=== PATIENT | male | born 1945 | race Caucasian/White ===

== ENCOUNTER 2017-03-12 05:59 | Inpatient (IN) | payer MEDICARE ==
[~2017-03-12 05:59] MED LIST: Lidocaine 1%/Sod Bicarbonate in NS 8.4% 1 ML Syringe PRN; Sodium Chloride 0.9% 10 ML Syringe FLUSH PRN
--- NOTE | 2017-03-12 06:03 | PCM.PREANE ---
Preanesthetic Assessment - Anesthesia/Transfusion/Family Hx Anesthesia History: Prior Anesthesia Without Reaction Family History of Anesthesia Reaction: No Transfusion History: No Prior Transfusion(s) Intubation History: Unknown - Review of Systems General: No Symptoms Pulmonary: No Symptoms (quit smoking 1999) Cardiovascular: No Symptoms (HTN), Lightheadedness (postural changes) Gastrointestinal: No Symptoms Neurological: No Symptoms (Back surgeries times 5./neurogenic bladder with self cathing noted. Back pain currently rated at 3/10), Tingling (bilateral pareshtesia's on feet.) Other: Reports: None (Mood disorder noted) - Physical Assessment NPO Status Date: 03/11/17 NPO Status Time: 20:15 Pulse: 67 O2 Sat by Pulse Oximetry: 95 Respiratory Rate: 18 Blood Pressure: 131/94 Temperature: 36.3 C Height: 1.78 m Weight: 100.698 kg ASA Class: 2 Mental Status: Alert & Oriented x3 Airway Class: Mallampati = 3 Dentition: Reports: Normal Dentition, Bridge (left/right top permanent.), Caries Thyro-Mental Finger Breadths: 3 Mouth Opening Finger Breadths: 3 ROM/Head Extension: Full Lungs: Clear to Auscultation, Normal Respiratory Effort Cardiovascular: Regular Rate, Regular Rhythm - Lab Values: Lab values reviewed and noted and within acceptable ranges to proceed with scheduled procedure. Noted: elevated BUN at 28 Platelets+ 386,000 MRSA screen negative - Imaging/EKG Impressions: EKG: sinus bradycardia with left axis deviation rate= 59 CXR: unremarkable - Allergies Allergies/Adverse Reactions: Allergies Allergy/AdvReac Type Severity Reaction Status Date / Time morphine Allergy Agitation Verified 03/09/17 12:41 - Anesthesia Plan Pre-Op Medication Ordered: None - Acknowledgements Anesthesia Type Planned: General Anesthesia Pt an Appropriate Candidate for the Planned Anesthesia: Yes Alternatives and Risks of Anesthesia Discussed w Pt/Guardian: Yes Pt/Guardian Understands and Agrees with Anesthesia Plan: Yes PreAnesthesia Questionnaire HEENT History: Reports: Impaired Vision Other HEENT History: wears glasses, has hearing aid Cardiovascular History: Reports: High Cholesterol, Hypertension Respiratory History: Reports: SOB Gastrointestinal History: Reports: Chronic Constipation Genitourinary History: Reports: Other (See Below) Other Genitourinary History: neurogenic bladder with self cathing [employer] History: Reports: None Musculoskeletal History: Reports: Back Pain, Chronic, Gout, Osteoarthritis Psychiatric History: Reports: Other (See Below) Other Psychiatric History: mood disorder, insomnia Endocrine/Metabolic History: Reports: None Hematologic History: Reports: None Immunologic History: Reports: None Oncologic (Cancer) History: Reports: None Dermatologic History: Reports: Other (See Below) - Past Surgical History Head Surgeries/Procedures: Reports: None Cardiovascular Surgical History: Reports: None Respiratory Surgical History: Reports: None GI Surgical History: Reports: Appendectomy, Colonoscopy Female Surgical History: Male Surgical History: Endocrine Surgical History: Neurological Surgical History: Reports: Other (See Below) Other Neurological Surgeries/Procedures: back surgery x 5 Musculoskeletal Surgical History: Reports: Carpal Tunnel Oncologic Surgical History: Reports: None - SUBSTANCE USE Smoking Status *Q: Former Smoker Second Hand Smoke Exposure: No Recreational Drug Use History: No - HOME MEDS Home Medications: Home Meds Aspirin 81 mg PO DAILY 03/09/17 [History] Cholecalciferol (Vitamin D3) [Vitamin D3] 5,000 unit PO DAILY 03/09/17 [History] DULoxetine [Cymbalta] 30 mg PO DAILY 03/09/17 [History] HYDROmorphone [Dilaudid] 4 mg PO Q4H PRN 03/09/17 [History] Lisinopril 20 mg PO DAILY 03/09/17 [History] Polyethylene Glycol 3350 [MiraLAX] 1 dose PO BEDTIME 03/09/17 [History] Pregabalin [Lyrica] 150 mg PO TID 03/09/17 [History] Zolpidem [Ambien] 10 mg PO BEDTIME 03/09/17 [History] atorvaSTATin [Lipitor] 20 mg PO DAILY 03/09/17 [History] fentaNYL [Fentanyl] 50 mcg TOP Q48H 03/09/17 [History] - CURRENT (IN HOUSE) MEDS Current Meds: Current Medications Lactated Ringer's (Ringers, Lactated) 1,000 mls @ 125 mls/hr IV ASDIRECTED ELIZABETH Lidocaine/Sodium Bicarbonate (Buffered Lidocaine 1% In Ns 8.4%) 0.25 ml IV ONETIME PRN PRN Reason: Prior to IV Start Sodium Chloride (Saline Flush) 10 ml FLUSH ASDIRECTED PRN PRN Reason: Keep Vein Open
[2017-03-12] MEDS ORDERED: Docusate Sodium 100 MG Cap PO PRN (06:30)
[2017-03-12] MEDS ORDERED: Sennosides 8.6 MG Tab PO PRN (06:30)
[2017-03-12] MEDS ORDERED: Naloxone 0.4 MG/ML SDV IVPUSH PRN (06:30)
[2017-03-12] MEDS: Lactated Ringers 1,000 ML IV SCH ×2 (06:30→11:32)
[2017-03-12] MEDS ORDERED: ceFAZolin 2 GM in Premix Bag 1 BAG IV SCH (06:30)
[2017-03-12] MEDS ORDERED: Magnesium Hydroxide 400 MG/5 ML Susp 30 ML Cup PO PRN (06:30)
[2017-03-12] MEDS ORDERED: Ondansetron 4 MG/2 ML SDV IVPUSH PRN ×2 (06:30→07:31)
[2017-03-12] MEDS ORDERED: HYDROmorphone 1 MG/ML Syringe IVPUSH PRN (06:30)
[2017-03-12] MEDS ORDERED: Bisacodyl 5 MG Tab PO PRN (06:30)
[2017-03-12] MEDS ORDERED: Rocuronium 50 MG/5 ML Vial ONE (06:44)
[2017-03-12] MEDS ORDERED: ceFAZolin 1 GM Vial ONE (06:44)
[2017-03-12] MEDS ORDERED: Lidocaine 1% 4 ML ONE (06:44)
[2017-03-12] MEDS ORDERED: Lactated Ringers 1,000 ML ONE (06:44)
[2017-03-12] MEDS ORDERED: Ondansetron 4 MG/2 ML SDV ONE (06:44)
[2017-03-12] MEDS ORDERED: HYDROmorphone 1 MG/ML Syringe ONE (06:44)
[2017-03-12] MEDS ORDERED: Propofol 200 MG/20 ML SDV ONE (06:45)
[2017-03-12] MEDS ORDERED: fentaNYL 250 MCG/5 ML SDV ONE ×2 (06:45→08:12)
[2017-03-12] MEDS ORDERED: HYDROmorphone 0.5 MG/0.5 ML Syringe IVPUSH PRN (07:07)
[2017-03-12] MEDS ORDERED: ePHEDrine 50 MG/ML SDV IVPUSH PRN (07:31)
[2017-03-12] MEDS ORDERED: Phenylephrine 1 MG in Sodium Chloride 0.9% 10 ML IV SCH (07:45)
[2017-03-12] MEDS: Iodine/Sodium Iodide 2% Tincture 30 ML Bottle ONE ×2 (07:58→08:40)
[2017-03-12] MEDS: ceFAZolin 1 GM Vial ONE ×2 (07:58→08:44)
[2017-03-12] MEDS: Morphine 8 MG, EPINEPHrine 0.3 MG, Cefuroxime 750 MG, Ketorolac 30 MG, Sodium Chloride ... ONE ×10 (07:59→08:51)
[2017-03-12] MEDS: Bupivacaine 0.25% 30 ML SDV ONE ×2 (08:00→08:52)
[2017-03-12] MEDS: Vancomycin 1 GM SDV ONE ×2 (08:01→08:51)
[2017-03-12] MEDS ORDERED: Labetalol 100 MG/20 ML MDV ONE (08:23)
[2017-03-12] MEDS: fentaNYL 100 MCG/2 ML SDV IVPUSH PRN ×4 (09:40→10:47)
--- NOTE | 2017-03-12 09:40 | PCM.POSTAN ---
POST ANESTHESIA ASSESSMENT - MENTAL STATUS Mental Status: Alert - VITAL SIGNS Pulse Rate: 72 SaO2: 92 Resp Rate: 13 Blood Pressure: 138/89 Temperature: 36.5 C - RESPIRATORY Respiratory Status: Respiratory Rate WNL, Airway Patent, O2 Saturation Stable, Supplemental Oxygen - CARDIOVASCULAR CV Status: Pulse Rate WNL, Blood Pressure Stable - GASTROINTESTINAL GI Status: No Symptoms - POST OP HYDRATION Hydration Status: Adequate & Stable
[2017-03-12] MEDS: HYDROmorphone 0.5 MG/0.5 ML Syringe IVPUSH PRN ×2 (09:43→10:08)
[2017-03-12] MEDS ORDERED: fentaNYL 100 MCG/2 ML SDV ONE ×4 (09:47→11:32)
[2017-03-12] MEDS ORDERED: HYDROmorphone 0.5 MG/0.5 ML Syringe ONE (09:48)
--- NOTE | 2017-03-12 11:10 | CR ---
Left knee: AP and lateral views of the left knee were obtained. Comparison: No previous left knee. Left knee prosthesis is noted. Components are aligned. Soft tissue air is identified. No acute fracture or other abnormality is seen. Impression: 1. Satisfactory appearance of recently placed left knee prosthesis. Diagnostic code #2
[2017-03-12] MEDS ORDERED: Ropivacaine 0.5% 5 MG/ML 30 ML SDV ONE (11:20)
[2017-03-12] MEDS ORDERED: EPINEPHrine 1 MG/ML SDV ONE (11:20)
[2017-03-12] MEDS ORDERED: Midazolam 1 MG/ML 2 ML SDV ONE (11:32)
--- NOTE | 2017-03-12 12:33 | PCM.SN ---
- Free Text/Narrative Note: Anesthesia Note: Date: 03/12/2017 Time Out: 1132 Start: 1132 Stop: 1155 Procedure: Left Femoral Nerve Block Under US Guidance for post operative pain control requested by Dr. De Anda. Patient chart reviewed, allergies noted, and risk/benefits discussed with consent obtained. Patient placed in supine position, monitors/alarms on, O2 placed via nasal cannula at 2LPM. IV sedation titrated to effect. 1135 HR: 72 RR: 13 BP: 117/71 SPo2: 94% on 2L/NC 1145 HR:76 RR:10 BP:106/74 SPo2: 92% on 3L/NC Sterile technique noted with sterile gloves, cap, mask, and sterile drapes. Right groin area prepped with chloroprep times two. Femoral artery, Femoral vein, and Femoral nerve branch visualized under US guidance (sterile sleeve) noted. Area localized with 1% lidocaine. Stimiplex 21 gauge 4 inch needle advanced under US guidance with a positive quadricep and knee stimulated at 0.8mV. Stimulation still noted with voltage decreased to 0.2mV. Stimulation ceased with 1ml of normal saline injected. Ropivacaine 0.5% with 1:200,000 epinephrine injected incrementally with negative aspirations for a total volume of 30ml's.
[2017-03-12] MEDS ORDERED: FLU Vacc TS 2017-18 (65yr UP)/PF 180 MCG/0.5 ML Syringe IM ONE (14:45)
[2017-03-12] MEDS: ceFAZolin 2 GM in Premix Bag 1 BAG IV SCH ×2 (15:02→22:53)
[2017-03-12] MEDS: Famotidine 20 MG Tab PO SCH ×2 (15:48→20:36)
[2017-03-12] MEDS ORDERED: fentaNYL 50 MCG/HR Transdermal Patch TOP SCH (17:30)
--- NOTE | 2017-03-12 18:34 | PCM.CONS ---
H&P History of Present Illness - General Date of Service: 03/12/17 Admit Problem/Dx: Admission Diagnosis/Problem Admission Diagnosis/Problem Osteoarthritis of knee Source of Information: Patient, Old Records, Provider, RN, RN Notes Reviewed, Other (surgical notes) History Limitations: Reports: No Limitations - History of Present Illness Initial Comments - Free Text/Narative: Arsalan Mckenzie is a 71 yo male patient of Dr. De Anda who is post-op day 0 of left total knee arthroplasty. Hospital medicine was consulted for post- operative medical care. At this time he is resting comfortably. Pain is controlled. He denies any chest pain, shortness of breath, palpitatoins, nausea , or vomiting. He carries a history of: HLD, HTN, chronic constipation, neurogenic bladder with self cathetering, chronic back pain, gout, osteoarthritis, mood disorder, and insomnia. He is a former smoker. He is a full code. His primary care provider is Dr. Nixon. Left Knee Pain Score (Numeric/FACES): 5 - Related Data Allergies/Adverse Reactions: Allergies Allergy/AdvReac Type Severity Reaction Status Date / Time morphine AdvReac Agitation Verified 03/12/17 07:29 Home Medications: Home Meds Aspirin 81 mg PO DAILY 03/09/17 [History] Cholecalciferol (Vitamin D3) [Vitamin D3] 5,000 unit PO DAILY 03/09/17 [History] DULoxetine [Cymbalta] 30 mg PO DAILY 03/09/17 [History] HYDROmorphone [Dilaudid] 4 mg PO Q4H PRN 03/09/17 [History] Lisinopril 10 mg PO DAILY 03/09/17 [History] Polyethylene Glycol 3350 [MiraLAX] 1 dose PO BEDTIME 03/09/17 [History] Pregabalin [Lyrica] 150 mg PO TID 03/09/17 [History] Zolpidem [Ambien] 10 mg PO BEDTIME 03/09/17 [History] atorvaSTATin [Lipitor] 20 mg PO DAILY 03/09/17 [History] fentaNYL [Fentanyl] 50 mcg TOP Q48H 03/09/17 [History] Past Medical History HEENT History: Reports: Impaired Vision Other HEENT History: wears glasses, has hearing aid Cardiovascular History: Reports: High Cholesterol, Hypertension Respiratory History: Reports: SOB Gastrointestinal History: Reports: Chronic Constipation Genitourinary History: Reports: Other (See Below) Other Genitourinary History: neurogenic bladder with self cathing [employer] History: Reports: None Musculoskeletal History: Reports: Back Pain, Chronic, Gout, Osteoarthritis Neurological History: Reports: None Psychiatric History: Reports: Other (See Below) Other Psychiatric History: mood disorder, insomnia Endocrine/Metabolic History: Reports: None Hematologic History: Reports: None Immunologic History: Reports: None Oncologic (Cancer) History: Reports: None Dermatologic History: Reports: Other (See Below) - Past Surgical History Head Surgeries/Procedures: Reports: None Cardiovascular Surgical History: Reports: None Respiratory Surgical History: Reports: None GI Surgical History: Reports: Appendectomy, Colonoscopy Endocrine Surgical History: Reports: None Neurological Surgical History: Reports: Other (See Below) Other Neurological Surgeries/Procedures: back surgery x 5 Musculoskeletal Surgical History: Reports: Carpal Tunnel Oncologic Surgical History: Reports: None Social & Family History - Family History Cardiac: Reports: Hypertension Respiratory: Reports: None GI: Reports: None : Reports: None Musculoskeletal: Reports: None Endocrine/Metabolic: Reports: Diabetes, type II Hematologic: Reports: None Oncologic: Reports: Breast - Tobacco Use Smoking Status *Q: Former Smoker Years of Tobacco use: 35 Packs/Tins Daily: 1 Used Tobacco, but Quit: Yes Month Tobacco Last Used: 1999 Second Hand Smoke Exposure: No - Caffeine Use Caffeine Use: Reports: Coffee Caffeine Use Comment: 2 cups of coffee/day - Recreational Drug Use Recreational Drug Use: No H&P Review of Systems - Review of Systems: Review Of Systems: See Below General: Reports: No Symptoms HEENT: Reports: No Symptoms Pulmonary: Reports: No Symptoms Cardiovascular: Reports: No Symptoms Gastrointestinal: Reports: No Symptoms Genitourinary: Reports: No Symptoms Musculoskeletal: Reports: Back Pain (Chronic -06/23), Joint Pain (left knee). Denies: Neck Pain, Shoulder Pain, Arm Pain, Leg Pain, Muscle Pain, Muscle Stiffness Skin: Reports: No Symptoms Psychiatric: Reports: No Symptoms Neurological: Reports: No Symptoms Hematologic/Lymphatic: Reports: No Symptoms Immunologic: Reports: No Symptoms Review of Systems Comment:: patient reports he is doing quite well. he states that he normally has to self catheter but the frequency is variable and does not have to happen always. Exam - Exam Exam: See Below - Vital Signs Vital Signs: Last Vital Signs Temp 209.8 F H 03/12/17 12:09 Pulse 74 03/12/17 14:32 Resp 10 L 03/12/17 12:09 BP 144/83 H 03/12/17 14:32 Pulse Ox 95 03/12/17 14:32 Weight: 222 lb - Exam Quality Assessment: Urinary Catheter, DVT Prophylaxis. No: Supplemental Oxygen General: Alert, Oriented, Cooperative HEENT: Conjunctiva Clear, EACs Clear, EOMI, Hearing Intact, Mucosa Moist & Petal , Nares Patent, Normal Nasal Septum, Posterior Pharynx Clear, Pupils Equal, Pupils Reactive Neck: Supple, Trachea Midline. No: JVD Lungs: Clear to Auscultation, Normal Respiratory Effort Cardiovascular: Regular Rate, Regular Rhythm GI/Abdominal Exam: Normal Bowel Sounds, Soft, Non-Tender, No Organomegaly, No Abnormal Bruit, No Mass, Pelvis Stable, Distended (Male) Exam: Deferred Rectal (Males) Exam: Deferred Back Exam: Normal Inspection, Decreased Range of Motion, Paraspinal Tenderness, Vertebral Tenderness Extremities: No Pedal Edema, Normal Capillary Refill, Other (Toan bandage on left leg. Bandage is dry and intact) Peripheral Pulses: 1+: Posterior Tibial (L), Posterior Tibial (R), Dorsalis Pedis (L), Dorsalis Pedis (R), 2+: Radial (L), Radial (R) Skin: Warm, Dry, Intact Neurological: Cranial Nerves Intact (grossly) Neuro Extensive - Mental Status: Alert, Oriented x3, Normal Mood/Affect, Normal Cognition, Memory Intact Neuro Extensive - Motor, Sensory, Reflexes: CN II-XII Intact (grossly) Psychiatric: Alert, Normal Affect, Normal Mood Physical Exam Comments:: No concerns currently. Consult PN Assessment/Plan POD#: 0 Procedures: Procedures ASSAY OF CREATININE (08/03/16) DXA BONE DENSITY AXIAL (03/06/17) MRI BRAIN STEM W/O & W/DYE (08/03/16) ROUTINE VENIPUNCTURE (08/03/16) (1) S/P total knee arthroplasty SNOMED Code(s): 1235082355023, 6002726244453 Code(s): Z96.659 - PRESENCE OF UNSPECIFIED ARTIFICIAL KNEE JOINT Priority: High Current Visit: Yes Qualifiers: Laterality: left Qualified Code(s): Z96.652 - Presence of left artificial knee joint (2) Osteoarthritis SNOMED Code(s): 414966324 Code(s): M19.90 - UNSPECIFIED OSTEOARTHRITIS, UNSPECIFIED SITE Priority: High Current Visit: Yes Qualifiers: Osteoarthritis location: knee Osteoarthritis type: primary Laterality: left Qualified Code(s): M17.12 - Unilateral primary osteoarthritis, left knee (3) HLD (hyperlipidemia) SNOMED Code(s): 32846045 Code(s): E78.5 - HYPERLIPIDEMIA, UNSPECIFIED Priority: Low Current Visit : No Qualifiers: Hyperlipidemia type: unspecified Qualified Code(s): E78.5 - Hyperlipidemia , unspecified (4) HTN (hypertension) SNOMED Code(s): 73630185 Code(s): I10 - ESSENTIAL (PRIMARY) HYPERTENSION Priority: Low Current Visit: Yes Qualifiers: Hypertension type: unspecified Qualified Code(s): I10 - Essential (primary ) hypertension (5) Chronic constipation SNOMED Code(s): 672142335 Code(s): K59.09 - OTHER CONSTIPATION Priority: Low Current Visit: No (6) Neurogenic bladder SNOMED Code(s): 803179707 Code(s): N31.9 - NEUROMUSCULAR DYSFUNCTION OF BLADDER, UNSPECIFIED Priority : Low Current Visit: No (7) Chronic back pain SNOMED Code(s): 521255012 Code(s): M54.9 - DORSALGIA, UNSPECIFIED; G89.29 - OTHER CHRONIC PAIN Priority: Medium Current Visit: Yes Qualifiers: Back pain location: low back pain Back pain laterality: unspecified Sciatica presence: unspecified whether sciatica present Qualified Code(s): M54.5 - Low back pain; G89.29 - Other chronic pain; G89.29 - Other chronic pain (8) Gout SNOMED Code(s): 80614932 Code(s): M10.9 - GOUT, UNSPECIFIED Priority: Low Current Visit: No Qualifiers: Gout site: unspecified site Gout etiology: unspecified cause Chronicity: unspecified Qualified Code(s): M10.9 - Gout, unspecified (9) Mood disorder Priority: Low Current Visit: No (10) Insomnia SNOMED Code(s): 588202197 Code(s): G47.00 - INSOMNIA, UNSPECIFIED Priority: Low Current Visit: No Qualifiers: Insomnia type: unspecified Qualified Code(s): G47.00 - Insomnia, unspecified Problem List Initiated/Reviewed/Updated: Yes Plan: I/P: Acute: S/P left total knee arthorplasty - postoperative day 0 -DVT prophylaxis and pain management per primary care team -PT/OT -IS/RT -Monitor oxygen saturation -Titrate oxygen as needed -Vital signs stable Osteoarthritis of left knee -Pain management per primary care team Neurogenic bladder with self-catheterization -Desai in place now -Nursing to monitor and catheterize as needed Chronic: HLD HTN Chronic constipation Chronic back pain - pain meds/home medications Gout Mood disorder Insomnia Plan: SW/CM for discharge planning GI prophylaxis Home medications as indicated Other orders as listed above Routine AM labs He is a full code. His PCP is Dr. Nixon Thank you for allowing us to participate in the care of this patient!! Requesting Provider: Dr. De Anda Date Consult Requested: 03/12/17 Reason for Consult: Post-operative medical management Patient History Reviewed: Yes Admission H&P Reviewed: Yes
[2017-03-12] MEDS: Polyethylene Glycol 3350 Powder 17 GM Packet PO SCH (19:59)
[2017-03-12] MEDS: Pregabalin 75 MG Cap PO SCH (20:36)
[2017-03-12] MEDS ORDERED: Polyethylene Glycol 3350 Powder 17 GM Packet PO SCH (21:00)
[2017-03-12] MEDS ORDERED: Zolpidem 10 MG Tab PO SCH (21:00)
[2017-03-12] MEDS: HYDROmorphone 2 MG Tab PO PRN (22:53)
[2017-03-13] MEDS: Famotidine 20 MG Tab PO SCH ×2 (06:29→16:51)
[2017-03-13] MEDS: ceFAZolin 2 GM in Premix Bag 1 BAG IV SCH (06:29)
[2017-03-13] MEDS: HYDROmorphone 2 MG Tab PO PRN ×2 (08:34→12:28)
[2017-03-13] MEDS: Pregabalin 75 MG Cap PO SCH ×2 (08:34→16:52)
[2017-03-13] MEDS: Polyethylene Glycol 3350 Powder 17 GM Packet PO SCH (08:37)
[2017-03-13] MEDS ORDERED: Simvastatin 20 MG Tab PO SCH (09:00)
[2017-03-13] MEDS ORDERED: Aspirin 325 MG Tab.EC PO SCH (09:00)
[2017-03-13] MEDS ORDERED: DULoxetine 30 MG Cap PO SCH (09:00)
[2017-03-13] MEDS ORDERED: Lisinopril 10 MG Tab PO SCH (09:00)
[2017-03-13] MEDS ORDERED: Cholecalciferol (Vitamin D3) 1,000 Unit Tab PO SCH (09:00)
[2017-03-13] MEDS ORDERED: Diphtheria,Pertussis(Acell),Tetanus Vaccine 0.5 ML SDV IM ONE (10:00)
[2017-03-13] MEDS ORDERED: Pneumococcal Polyvalent-23 Vaccine 0.5 ML SDV IM ONE (10:00)
--- NOTE | 2017-03-13 10:32 | PCM48HPAN ---
Post Anesthesia Note - EVALUATION WITHIN 48HRS OF ANESTHETIC Vital Signs in Normal Range: Yes Patient Participated in Evaluation: Yes Respiratory Function Stable: Yes Airway Patent: Yes Cardiovascular Function Stable: Yes Hydration Status Stable: Yes Pain Control Satisfactory: No Nausea and Vomiting Control Satisfactory: Yes Mental Status Recovered: Yes - COMMENTS/OBSERVATIONS Free Text/Narrative:: Patient states pain is bad. Anesthesia reviewed MAR and discussed pain medication with nurse.
[2017-03-13] MEDS ORDERED: Cyclobenzaprine 10 MG Tab PO PRN (11:53)
[2017-03-13] MEDS ORDERED: Ketorolac 15 MG/ML SDV IVPUSH ONE (12:20)
--- NOTE | 2017-03-13 12:20 | PCM.PN ---
- General Info Date of Service: 03/13/17 Admission Dx/Problem (Free Text): Admission Diagnosis/Problem Admission Diagnosis/Problem Osteoarthritis of knee S/P Lt TKA POD #[address] De Anda Pain is uncontrolled this morning to his knee and leg. He has chronic pain by hx. Tolerated breakfast, no nausea. He is self cathing - does this at home by hx due to neurogenic bladder, with good UO. Functional Status: Reports: Tolerating Diet, Ambulating, Urinating (straight cath), Incentive Spirometry. Denies: Pain Controlled - Review of Systems General: Denies: Fever HEENT: Reports: No Symptoms Pulmonary: Reports: No Symptoms. Denies: Shortness of Breath, Cough Cardiovascular: Reports: No Symptoms. Denies: Chest Pain, Palpitations Gastrointestinal: Reports: No Symptoms Genitourinary: Reports: No Symptoms, Other (self cathing) Musculoskeletal: Reports: Back Pain, Leg Pain - Patient Data Vitals - Most Recent: Last Vital Signs Temp 99.3 F 03/13/17 09:06 Pulse 88 03/13/17 10:56 Resp 13 03/13/17 09:06 BP 111/65 03/13/17 10:56 Pulse Ox 89 L 03/13/17 10:56 Weight - Most Recent: 234 lb 1.6 oz I&O - Last 24 Hours: Intake & Output 03/12/17 03/13/17 03/13/17 22:59 06:59 14:59 Intake Total 2019 300 180 Output Total 650 Balance 2020 -350 180 Lab Results Last 24 Hours: Laboratory Results - last 24 hr 03/13/17 03/13/17 Range/Units 05:20 05:20 WBC 12.10 H (4.23-9.07) K/mm3 RBC 3.75 L (4.63-6.08) M/mm3 Hgb 11.9 L (13.7-17.5) gm/L Hct 35.4 L (40.1-51.0) % MCV 94.4 H (79.0-92.2) fl MCH 31.7 (25.7-32.2) pg MCHC 33.6 (32.2-35.5) g/dl RDW Std Deviation 43.8 (35.1-43.9) fL Plt Count 281 (163-337) K/mm3 MPV 10.1 (9.4-12.3) fl Sodium 139 (136-145) mEq/L Potassium 4.4 (3.5-5.1) mEq/L Chloride 103 (98-107) mEq/L Carbon Dioxide 26 (21-32) mEq/L Anion Gap 14.4 (5-15) BUN 19 H (7-18) mg/dL Creatinine 1.3 (0.7-1.3) mg/dL Est Cr Clr Drug Dosing 54.59 mL/min Estimated GFR (MDRD) 55 (>60) mL/min BUN/Creatinine Ratio 14.6 (14-18) Glucose 129 H (80-115) mg/dL Calcium 8.0 L (8.5-10.1) mg/dL Total Bilirubin 0.9 (0.2-1.0) mg/dL AST 33 (15-37) U/L ALT 33 (16-63) U/L Alkaline Phosphatase 69 (46-116) U/L Total Protein 6.0 L (6.4-8.2) g/dl Albumin 2.8 L (3.4-5.0) g/dl Globulin 3.2 gm/dL Albumin/Globulin Ratio 0.9 L (1-2) Med Orders - Current: Current Medications Aspirin (Ecotrin) 325 mg PO BID [facility] Last Admin: 03/13/17 08:33 Dose: 325 mg Bisacodyl (Dulcolax) 5 mg PO DAILY PRN PRN Reason: Constipation Cholecalciferol (Vitamin D3) 5,000 units PO DAILY [facility] Last Admin: 03/13/17 08:33 Dose: 5,000 units Cyclobenzaprine HCl (Flexeril) 10 mg PO TID PRN PRN Reason: muscle spasms Duloxetine HCl (Cymbalta) 30 mg PO DAILY [facility] Last Admin: 03/13/17 08:34 Dose: 30 mg Famotidine (Pepcid) 20 mg PO Q12H [facility] Last Admin: 03/13/17 06:29 Dose: 20 mg Fentanyl (Duragesic) 50 mcg TOP Q48H [facility] Last Admin: 03/12/17 20:36 Dose: 50 mcg Hydromorphone HCl (Dilaudid) 0.2 mg IVPUSH Q2H PRN PRN Reason: Breakthrough Pain Hydromorphone HCl (Dilaudid) 4 mg PO Q4H PRN PRN Reason: Pain Last Admin: 03/13/17 08:34 Dose: 4 mg Ketorolac Tromethamine (Toradol) 15 mg IVPUSH ONETIME ONE Stop: 03/13/17 12:15 Lisinopril (Prinivil) 10 mg PO DAILY [facility] Last Admin: 03/13/17 08:36 Dose: 10 mg Magnesium Hydroxide (Milk Of Magnesia) 30 ml PO BID PRN PRN Reason: Constipation Miscellaneous Information (Remove Patch) 1 ea TRDERM Q48H [facility] Naloxone HCl (Narcan) 0.1 mg IVPUSH Q5M PRN PRN Reason: Oversedation Ondansetron HCl (Zofran) 4 mg IVPUSH Q6H PRN PRN Reason: Nausea/Vomiting Polyethylene Glycol (Miralax) 17 gm PO DAILY [facility] Last Admin: 03/13/17 08:37 Dose: 17 gm Polyethylene Glycol (Miralax) 17 gm PO BEDTIME [facility] Last Admin: 03/12/17 20:37 Dose: 17 gm Pregabalin (Lyrica) 150 mg PO TID [facility] Last Admin: 03/13/17 08:34 Dose: 150 mg Senna/Docusate Sodium (Senna Plus) 2 tab PO BEDTIME [facility] Last Admin: 03/12/17 20:33 Dose: Not Given Simvastatin (Zocor) 20 mg PO DAILY [facility] Sodium Chloride (Saline Flush) 10 ml FLUSH ASDIRECTED PRN PRN Reason: Keep Vein Open Tapentadol (Nucynta) 50 - 100 mg PO Q4H PRN PRN Reason: Pain Last Admin: 03/13/17 10:59 Dose: 50 mg Zolpidem Tartrate (Ambien) 10 mg PO BEDTIME [facility] Last Admin: 03/12/17 20:36 Dose: 10 mg Discontinued Medications Bupivacaine HCl (Marcaine 0.25%) Confirm Administered Dose 30 ml .ROUTE .STK- MED ONE Stop: 03/12/17 06:17 Last Admin: 03/12/17 08:52 Dose: 30 ml Cefazolin Sodium (Ancef) Confirm Administered Dose 2 gm .ROUTE .STK-MED ONE Stop: 03/12/17 06:17 Last Admin: 03/12/17 08:44 Dose: 2 gm Cefazolin Sodium (Ancef) Confirm Administered Dose 2 gm .ROUTE .STK-MED ONE Stop: 03/12/17 06:45 Morphine Sulfate 8 mg/Epinephrine HCl 0.3 mg/Cefuroxime Sodium 750 mg/Ketorolac Tromethamine 30 mg/Sodium Chloride 27.9 ml 0 mg .XX ONETIME ONE Stop: 03/12/17 07:31 Last Admin: 03/12/17 08:51 Dose: 788.3 mg Diphtheria/Tetanus/Acell Pertussis (Adacel) 0.5 ml IM .ONCE ONE Stop: 03/13/17 10:01 Docusate Sodium (Colace) 100 mg PO BID PRN PRN Reason: Constipation Ephedrine Sulfate (Ephedrine Sulfate) 5 mg IVPUSH ASDIRECTED PRN PRN Reason: Hypotension Stop: 03/12/17 10:00 Epinephrine HCl (Adrenalin 1:1000) Confirm Administered Dose 1 mg .ROUTE .STK- MED ONE Stop: 03/12/17 11:21 Fentanyl (Sublimaze) Confirm Administered Dose 250 mcg .ROUTE .STK-MED ONE Stop: 03/12/17 06:46 Fentanyl (Sublimaze) 50 mcg IVPUSH Q5M PRN PRN Reason: Pain Stop: 03/12/17 10:00 Last Admin: 03/12/17 10:47 Dose: 50 mcg Fentanyl (Sublimaze) Confirm Administered Dose 250 mcg .ROUTE .STK-MED ONE Stop: 03/12/17 08:13 Fentanyl (Sublimaze) Confirm Administered Dose 100 mcg .ROUTE .STK-MED ONE Stop: 03/12/17 09:48 Last Admin: 03/12/17 13:25 Dose: Not Given Fentanyl (Sublimaze) Confirm Administered Dose 100 mcg .ROUTE .STK-MED ONE Stop: 03/12/17 10:16 Last Admin: 03/12/17 13:25 Dose: Not Given Fentanyl (Sublimaze) Confirm Administered Dose 100 mcg .ROUTE .STK-MED ONE Stop: 03/12/17 10:40 Last Admin: 03/12/17 13:25 Dose: Not Given Fentanyl (Sublimaze) Confirm Administered Dose 100 mcg .ROUTE .STK-MED ONE Stop: 03/12/17 11:33 Last Admin: 03/12/17 11:41 Dose: 50 mcg Hydromorphone HCl (Dilaudid) Confirm Administered Dose 1 mg .ROUTE .STK-MED ONE Stop: 03/12/17 06:45 Hydromorphone HCl (Dilaudid) 0.2 mg IVPUSH Q2H PRN PRN Reason: Breakthrough Pain Hydromorphone HCl (Dilaudid) 0.5 mg IVPUSH Q15M PRN PRN Reason: severe pain Stop: 03/12/17 10:00 Last Admin: 03/12/17 10:08 Dose: 0.5 mg Hydromorphone HCl (Dilaudid) Confirm Administered Dose 0.5 mg .ROUTE .STK-MED ONE Stop: 03/12/17 09:49 Last Admin: 03/12/17 13:24 Dose: Not Given Lactated Ringer's (Ringers, Lactated) 1,000 mls @ 125 mls/hr IV ASDIRECTED [facility] Stop: 03/12/17 23:00 Last Admin: 03/12/17 11:32 Dose: 125 mls/hr Acetaminophen (Ofirmev) 100 mls @ 400 mls/hr IV NOW ONE Stop: 03/12/17 06:18 Last Admin: 03/12/17 07:01 Dose: 400 mls/hr Lidocaine HCl (Xylocaine-Mpf 1%) Confirm Administered Dose 4 mls @ as directed .ROUTE .STK-MED ONE Stop: 03/12/17 06:45 Lactated Ringer's (Ringers, Lactated) Confirm Administered Dose 1,000 mls @ as directed .ROUTE .STK-MED ONE Stop: 03/12/17 06:45 Phenylephrine HCl 1 mg/ Sodium (Chloride) 10.1 mls @ 1 mls/sec IV TITRATE ELIZABETH PRN Reason: Protocol Stop: 03/12/17 10:00 Cefazolin Sodium/Dextrose 2 gm (/ Premix) 50 mls @ 100 mls/hr IV Q8H [facility] Stop: 03/13/17 07:29 Last Admin: 03/13/17 06:29 Dose: 100 mls/hr Influenza Virus Vaccine (Pharmacy To Dose - Influenza Vaccine) 1 each IM ONETIME ONE Stop: 03/12/17 14:33 Last Admin: 03/12/17 15:47 Dose: Not Given Influenza Virus Vaccine (Fluzone High-Dose ) 180 mcg IM .ONCE ONE Stop: 03/12/17 14:46 Iodine (Iodine 2% Mild Tincture) Confirm Administered Dose 30 ml .ROUTE .STK- MED ONE Stop: 03/12/17 06:17 Last Admin: 03/12/17 08:40 Dose: 18 ml Labetalol HCl (Normodyne) Confirm Administered Dose 100 mg .ROUTE .STK-MED ONE Stop: 03/12/17 08:24 Lidocaine/Sodium Bicarbonate (Buffered Lidocaine 1% In Ns 8.4%) 0.25 ml .XX ONETIME PRN PRN Reason: Prior to IV Start Stop: 03/12/17 18:00 Last Admin: 03/12/17 06:29 Dose: 0.25 ml Midazolam HCl (Versed 1 Mg/Ml) Confirm Administered Dose 2 mg .ROUTE .STK-MED ONE Stop: 03/12/17 11:33 Last Admin: 03/12/17 11:39 Dose: 2 mg Ondansetron HCl (Zofran) Confirm Administered Dose 4 mg .ROUTE .STK-MED ONE Stop: 03/12/17 06:45 Ondansetron HCl (Zofran) 4 mg IVPUSH ONETIME PRN PRN Reason: Nausea/Vomiting Stop: 03/12/17 10:00 Pneumococcal Polyvalent Vaccine (Pneumovax 23) 0.5 ml IM .ONCE ONE Stop: 03/13/17 10:01 Propofol (Diprivan 20 Ml) Confirm Administered Dose 200 mg .ROUTE .STK-MED ONE Stop: 03/12/17 06:46 Rocuronium [place] (Zemuron) Confirm Administered Dose 50 mg .ROUTE .STK-MED ONE Stop: 03/12/17 06:45 Ropivacaine (Naropin 0.5%) Confirm Administered Dose 30 ml .ROUTE .STK-MED ONE Stop: 03/12/17 11:21 Senna (Senna) 8.6 mg PO BID PRN PRN Reason: Constipation Tranexamic Acid (Cyklokapron) Confirm Administered Dose 1,000 mg .ROUTE .STK- MED ONE Stop: 03/12/17 06:16 Last Admin: 03/12/17 09:00 Dose: 1,000 mg Vancomycin HCl (Vancomycin) Confirm Administered Dose 1 gm .ROUTE .STK-MED ONE Stop: 03/12/17 06:17 Last Admin: 03/12/17 08:51 Dose: 1 gm - Exam Quality Assessment: DVT Prophylaxis General: Alert, Oriented, Mild Distress (pain) HEENT: Pupils Equal, EOMI, Mucous Membr. Moist/[place] Neck: Supple Lungs: Clear to Auscultation, Normal Respiratory Effort, Decreased Breath Sounds (bases) Cardiovascular: Regular Rate, Regular Rhythm GI/Abdominal Exam: Normal Bowel Sounds, Soft, Non-Tender (Male) Exam: Deferred Extremities: Normal Capillary Refill, Other (teds/SCD's and taj to left leg- CMS + bilat to LE) Neurological: No New Focal Deficit Psy/Mental Status: Alert, Anxious - Problem List & Annotations (1) S/P total knee arthroplasty SNOMED Code(s): 8896647886114, 7238900904226 Code(s): Z96.659 - PRESENCE OF UNSPECIFIED ARTIFICIAL KNEE JOINT Status: Acute Priority: High Current Visit: Yes Qualifiers: Laterality: left Qualified Code(s): Z96.652 - Presence of left artificial knee joint (2) Osteoarthritis SNOMED Code(s): 722118620 Code(s): M19.90 - UNSPECIFIED OSTEOARTHRITIS, UNSPECIFIED SITE Status: Chronic Priority: High Current Visit: Yes Qualifiers: Osteoarthritis location: knee Osteoarthritis type: primary Laterality: left Qualified Code(s): M17.12 - Unilateral primary osteoarthritis, left knee (3) Chronic back pain SNOMED Code(s): 764890303 Code(s): M54.9 - DORSALGIA, UNSPECIFIED; G89.29 - OTHER CHRONIC PAIN Status : Acute Priority: Medium Current Visit: Yes Qualifiers: Back pain location: low back pain Back pain laterality: unspecified Sciatica presence: unspecified whether sciatica present Qualified Code(s): M54.5 - Low back pain; G89.29 - Other chronic pain; G89.29 - Other chronic pain (4) Neurogenic bladder SNOMED Code(s): 095887793 Code(s): N31.9 - NEUROMUSCULAR DYSFUNCTION OF BLADDER, UNSPECIFIED Status: Chronic Priority: Medium Current Visit: Yes (5) HTN (hypertension) SNOMED Code(s): 30927545 Code(s): I10 - ESSENTIAL (PRIMARY) HYPERTENSION Status: Chronic Priority : Low Current Visit: Yes Qualifiers: Hypertension type: unspecified Qualified Code(s): I10 - Essential (primary ) hypertension (6) Chronic constipation SNOMED Code(s): 071603359 Code(s): K59.09 - OTHER CONSTIPATION Status: Acute Priority: Low Current Visit: No (7) HLD (hyperlipidemia) SNOMED Code(s): 05320431 Code(s): E78.5 - HYPERLIPIDEMIA, UNSPECIFIED Status: Acute Priority: Low Current Visit: No Qualifiers: Hyperlipidemia type: unspecified Qualified Code(s): E78.5 - Hyperlipidemia , unspecified - Problem List Review Problem List Initiated/Reviewed/Updated: Yes - My Orders Last 24 Hours: My Active Orders 03/13/17 11:53 Cyclobenzaprine [Flexeril] 10 mg PO TID PRN 03/13/17 12:14 Ketorolac [Toradol] 15 mg IVPUSH ONETIME ONE - Plan Plan:: I/P: Acute: S/P left total knee arthorplasty - postoperative day 1 -DVT prophylaxis and pain management per primary care team -PT/OT -IS/RT -Vital signs stable -Hgb 11.9, other labs stable -Pain is uncontrolled today; talked with Crystal Benitez PA-C with Ortho, clarified dilaudid dosing is Q4hrs PO PRN, added flexeril TID PRN, will also try Toradol IVP x 1 now. He is getting nucynta and on fentanyl patch. Osteoarthritis of left knee---as above -Pain management per primary care team Neurogenic bladder with self-catheterization -Desai DC'd -Straight cath PRN, as per home schedule -Nursing to monitor Chronic: HLD HTN- stable Chronic constipation Chronic back pain - pain meds/home medications- Ortho discussed pain management with Pain Specialist prior to surgery Gout Mood disorder Insomnia Plan: SW/CM for discharge planning--once pain controlled and ok with therapies patient will be okay for discharge home with /family GI prophylaxis Home medications as indicated Other orders as listed above Routine AM labs He is a full code. His PCP is Dr. Nixon with [facility] in [place]
--- NOTE | 2017-03-13 13:49 | PCM.SURGPN ---
- General Info Date of Service: 03/13/17 POD#: 1 Functional Status: Reports: Tolerating Diet, Ambulating, Incentive Spirometry, Other (The pt's pain has been difficult to control - hx chronic pain with pain contract with Dr. Chery.) - Patient Data Vitals - Most Recent: Last Vital Signs Temp 99.3 F 03/13/17 09:06 Pulse 88 03/13/17 10:56 Resp 13 03/13/17 09:06 BP 111/65 03/13/17 10:56 Pulse Ox 89 L 03/13/17 10:56 Weight - Most Recent: 234 lb 1.6 oz I&O - Last 24 Hours: Intake & Output 03/12/17 03/13/17 03/13/17 22:59 06:59 14:59 Intake Total 2019 300 180 Output Total 650 Balance 2020 -350 180 Lab Results Last 24 Hrs: Laboratory Results - last 24 hr 03/13/17 03/13/17 Range/Units 05:20 05:20 WBC 12.10 H (4.23-9.07) K/mm3 RBC 3.75 L (4.63-6.08) M/mm3 Hgb 11.9 L (13.7-17.5) gm/L Hct 35.4 L (40.1-51.0) % MCV 94.4 H (79.0-92.2) fl MCH 31.7 (25.7-32.2) pg MCHC 33.6 (32.2-35.5) g/dl RDW Std Deviation 43.8 (35.1-43.9) fL Plt Count 281 (163-337) K/mm3 MPV 10.1 (9.4-12.3) fl Sodium 139 (136-145) mEq/L Potassium 4.4 (3.5-5.1) mEq/L Chloride 103 (98-107) mEq/L Carbon Dioxide 26 (21-32) mEq/L Anion Gap 14.4 (5-15) BUN 19 H (7-18) mg/dL Creatinine 1.3 (0.7-1.3) mg/dL Est Cr Clr Drug Dosing 54.59 mL/min Estimated GFR (MDRD) 55 (>60) mL/min BUN/Creatinine Ratio 14.6 (14-18) Glucose 129 H (80-115) mg/dL Calcium 8.0 L (8.5-10.1) mg/dL Total Bilirubin 0.9 (0.2-1.0) mg/dL AST 33 (15-37) U/L ALT 33 (16-63) U/L Alkaline Phosphatase 69 (46-116) U/L Total Protein 6.0 L (6.4-8.2) g/dl Albumin 2.8 L (3.4-5.0) g/dl Globulin 3.2 gm/dL Albumin/Globulin Ratio 0.9 L (1-2) Med Orders - Current: Current Medications Aspirin (Ecotrin) 325 mg PO BID [facility] Last Admin: 03/13/17 08:33 Dose: 325 mg Bisacodyl (Dulcolax) 5 mg PO DAILY PRN PRN Reason: Constipation Cholecalciferol (Vitamin D3) 5,000 units PO DAILY [facility] Last Admin: 03/13/17 08:33 Dose: 5,000 units Cyclobenzaprine HCl (Flexeril) 10 mg PO TID PRN PRN Reason: muscle spasms Last Admin: 03/13/17 12:27 Dose: 10 mg Duloxetine HCl (Cymbalta) 30 mg PO DAILY [facility] Last Admin: 03/13/17 08:34 Dose: 30 mg Famotidine (Pepcid) 20 mg PO Q12H [facility] Last Admin: 03/13/17 06:29 Dose: 20 mg Fentanyl (Duragesic) 50 mcg TOP Q48H [facility] Last Admin: 03/12/17 20:36 Dose: 50 mcg Hydromorphone HCl (Dilaudid) 0.2 mg IVPUSH Q2H PRN PRN Reason: Breakthrough Pain Hydromorphone HCl (Dilaudid) 4 mg PO Q4H PRN PRN Reason: Pain Last Admin: 03/13/17 12:28 Dose: 4 mg Lisinopril (Prinivil) 10 mg PO DAILY [facility] Last Admin: 03/13/17 08:36 Dose: 10 mg Magnesium Hydroxide (Milk Of Magnesia) 30 ml PO BID PRN PRN Reason: Constipation Miscellaneous Information (Remove Patch) 1 ea TRDERM Q48H [facility] Naloxone HCl (Narcan) 0.1 mg IVPUSH Q5M PRN PRN Reason: Oversedation Ondansetron HCl (Zofran) 4 mg IVPUSH Q6H PRN PRN Reason: Nausea/Vomiting Polyethylene Glycol (Miralax) 17 gm PO DAILY [facility] Last Admin: 03/13/17 08:37 Dose: 17 gm Polyethylene Glycol (Miralax) 17 gm PO BEDTIME [facility] Last Admin: 03/12/17 20:37 Dose: 17 gm Pregabalin (Lyrica) 150 mg PO TID [facility] Last Admin: 03/13/17 08:34 Dose: 150 mg Senna/Docusate Sodium (Senna Plus) 2 tab PO BEDTIME [facility] Last Admin: 03/12/17 20:33 Dose: Not Given Simvastatin (Zocor) 20 mg PO DAILY [facility] Last Admin: 03/13/17 09:00 Dose: 20 mg Sodium Chloride (Saline Flush) 10 ml FLUSH ASDIRECTED PRN PRN Reason: Keep Vein Open Tapentadol (Nucynta) 50 - 100 mg PO Q4H PRN PRN Reason: Pain Last Admin: 03/13/17 10:59 Dose: 50 mg Zolpidem Tartrate (Ambien) 10 mg PO BEDTIME [facility] Last Admin: 03/12/17 20:36 Dose: 10 mg Discontinued Medications Bupivacaine HCl (Marcaine 0.25%) Confirm Administered Dose 30 ml .ROUTE .STK- MED ONE Stop: 03/12/17 06:17 Last Admin: 03/12/17 08:52 Dose: 30 ml Cefazolin Sodium (Ancef) Confirm Administered Dose 2 gm .ROUTE .STK-MED ONE Stop: 03/12/17 06:17 Last Admin: 03/12/17 08:44 Dose: 2 gm Cefazolin Sodium (Ancef) Confirm Administered Dose 2 gm .ROUTE .STK-MED ONE Stop: 03/12/17 06:45 Morphine Sulfate 8 mg/Epinephrine HCl 0.3 mg/Cefuroxime Sodium 750 mg/Ketorolac Tromethamine 30 mg/Sodium Chloride 27.9 ml 0 mg .XX ONETIME ONE Stop: 03/12/17 07:31 Last Admin: 03/12/17 08:51 Dose: 788.3 mg Diphtheria/Tetanus/Acell Pertussis (Adacel) 0.5 ml IM .ONCE ONE Stop: 03/13/17 10:01 Last Admin: 03/13/17 13:10 Dose: Not Given Docusate Sodium (Colace) 100 mg PO BID PRN PRN Reason: Constipation Ephedrine Sulfate (Ephedrine Sulfate) 5 mg IVPUSH ASDIRECTED PRN PRN Reason: Hypotension Stop: 03/12/17 10:00 Epinephrine HCl (Adrenalin 1:1000) Confirm Administered Dose 1 mg .ROUTE .STK- MED ONE Stop: 03/12/17 11:21 Fentanyl (Sublimaze) Confirm Administered Dose 250 mcg .ROUTE .STK-MED ONE Stop: 03/12/17 06:46 Fentanyl (Sublimaze) 50 mcg IVPUSH Q5M PRN PRN Reason: Pain Stop: 03/12/17 10:00 Last Admin: 03/12/17 10:47 Dose: 50 mcg Fentanyl (Sublimaze) Confirm Administered Dose 250 mcg .ROUTE .STK-MED ONE Stop: 03/12/17 08:13 Fentanyl (Sublimaze) Confirm Administered Dose 100 mcg .ROUTE .STK-MED ONE Stop: 03/12/17 09:48 Last Admin: 03/12/17 13:25 Dose: Not Given Fentanyl (Sublimaze) Confirm Administered Dose 100 mcg .ROUTE .STK-MED ONE Stop: 03/12/17 10:16 Last Admin: 03/12/17 13:25 Dose: Not Given Fentanyl (Sublimaze) Confirm Administered Dose 100 mcg .ROUTE .STK-MED ONE Stop: 03/12/17 10:40 Last Admin: 03/12/17 13:25 Dose: Not Given Fentanyl (Sublimaze) Confirm Administered Dose 100 mcg .ROUTE .STK-MED ONE Stop: 03/12/17 11:33 Last Admin: 03/12/17 11:41 Dose: 50 mcg Hydromorphone HCl (Dilaudid) Confirm Administered Dose 1 mg .ROUTE .STK-MED ONE Stop: 03/12/17 06:45 Hydromorphone HCl (Dilaudid) 0.2 mg IVPUSH Q2H PRN PRN Reason: Breakthrough Pain Hydromorphone HCl (Dilaudid) 0.5 mg IVPUSH Q15M PRN PRN Reason: severe pain Stop: 03/12/17 10:00 Last Admin: 03/12/17 10:08 Dose: 0.5 mg Hydromorphone HCl (Dilaudid) Confirm Administered Dose 0.5 mg .ROUTE .STK-MED ONE Stop: 03/12/17 09:49 Last Admin: 03/12/17 13:24 Dose: Not Given Lactated Ringer's (Ringers, Lactated) 1,000 mls @ 125 mls/hr IV ASDIRECTED [facility] Stop: 03/12/17 23:00 Last Admin: 03/12/17 11:32 Dose: 125 mls/hr Acetaminophen (Ofirmev) 100 mls @ 400 mls/hr IV NOW ONE Stop: 03/12/17 06:18 Last Admin: 03/12/17 07:01 Dose: 400 mls/hr Lidocaine HCl (Xylocaine-Mpf 1%) Confirm Administered Dose 4 mls @ as directed .ROUTE .STK-MED ONE Stop: 03/12/17 06:45 Lactated Ringer's (Ringers, Lactated) Confirm Administered Dose 1,000 mls @ as directed .ROUTE .STK-MED ONE Stop: 03/12/17 06:45 Phenylephrine HCl 1 mg/ Sodium (Chloride) 10.1 mls @ 1 mls/sec IV TITRATE [facility] PRN Reason: Protocol Stop: 03/12/17 10:00 Cefazolin Sodium/Dextrose 2 gm (/ Premix) 50 mls @ 100 mls/hr IV Q8H [facility] Stop: 03/13/17 07:29 Last Admin: 03/13/17 06:29 Dose: 100 mls/hr Influenza Virus Vaccine (Pharmacy To Dose - Influenza Vaccine) 1 each IM ONETIME ONE Stop: 03/12/17 14:33 Last Admin: 03/12/17 15:47 Dose: Not Given Influenza Virus Vaccine (Fluzone High-Dose ) 180 mcg IM .ONCE ONE Stop: 03/12/17 14:46 Iodine (Iodine 2% Mild Tincture) Confirm Administered Dose 30 ml .ROUTE .STK- MED ONE Stop: 03/12/17 06:17 Last Admin: 03/12/17 08:40 Dose: 18 ml Ketorolac Tromethamine (Toradol) 15 mg IVPUSH ONETIME ONE Stop: 03/13/17 12:21 Last Admin: 03/13/17 12:29 Dose: 15 mg Labetalol HCl (Normodyne) Confirm Administered Dose 100 mg .ROUTE .STK-MED ONE Stop: 03/12/17 08:24 Lidocaine/Sodium Bicarbonate (Buffered Lidocaine 1% In Ns 8.4%) 0.25 ml .XX ONETIME PRN PRN Reason: Prior to IV Start Stop: 03/12/17 18:00 Last Admin: 03/12/17 06:29 Dose: 0.25 ml Midazolam HCl (Versed 1 Mg/Ml) Confirm Administered Dose 2 mg .ROUTE .STK-MED ONE Stop: 03/12/17 11:33 Last Admin: 03/12/17 11:39 Dose: 2 mg Ondansetron HCl (Zofran) Confirm Administered Dose 4 mg .ROUTE .STK-MED ONE Stop: 03/12/17 06:45 Ondansetron HCl (Zofran) 4 mg IVPUSH ONETIME PRN PRN Reason: Nausea/Vomiting Stop: 03/12/17 10:00 Pneumococcal Polyvalent Vaccine (Pneumovax 23) 0.5 ml IM .ONCE ONE Stop: 03/13/17 10:01 Last Admin: 03/13/17 13:10 Dose: Not Given Propofol (Diprivan 20 Ml) Confirm Administered Dose 200 mg .ROUTE .STK-MED ONE Stop: 03/12/17 06:46 Rocuronium [place] (Zemuron) Confirm Administered Dose 50 mg .ROUTE .STK-MED ONE Stop: 03/12/17 06:45 Ropivacaine (Naropin 0.5%) Confirm Administered Dose 30 ml .ROUTE .STK-MED ONE Stop: 03/12/17 11:21 Senna (Senna) 8.6 mg PO BID PRN PRN Reason: Constipation Tranexamic Acid (Cyklokapron) Confirm Administered Dose 1,000 mg .ROUTE .STK- MED ONE Stop: 03/12/17 06:16 Last Admin: 03/12/17 09:00 Dose: 1,000 mg Vancomycin HCl (Vancomycin) Confirm Administered Dose 1 gm .ROUTE .STK-MED ONE Stop: 03/12/17 06:17 Last Admin: 03/12/17 08:51 Dose: 1 gm - Exam Wound/Incisions: Dressing Dry and Intact General: Alert, Cooperative, No Acute Distress Lungs: Normal Respiratory Effort Extremities: Other (Mod effusion left knee. Near independent SLR LLE. Kris's negative BLE.) - Problem List Review Problem List Initiated/Reviewed/Updated: Yes - My Orders Last 24 Hours: Active Orders 24 hr Category Date Time Status Vaccines to be Administered [RC] PER UNIT ROUTINE Care 03/13/17 07:49 Active Aspirin [Ecotrin] Med 03/13/17 09:00 Active 325 mg PO BID Cholecalciferol (Vitamin D3) [Vitamin D3] Med 03/13/17 09:00 Active 5,000 units PO DAILY Cyclobenzaprine [Flexeril] Med 03/13/17 11:53 Active 10 mg PO TID PRN DULoxetine [Cymbalta] Med 03/13/17 09:00 Active 30 mg PO DAILY Docusate Sodium/Sennosides [Senna Plus] Med 03/12/17 21:00 Active 2 tab PO BEDTIME HYDROmorphone [Dilaudid] Med 03/12/17 17:30 Active 4 mg PO Q4H PRN Lisinopril [Prinivil] Med 03/13/17 09:00 Active 10 mg PO DAILY Polyethylene Glycol 3350 [MiraLAX] Med 03/12/17 21:00 Active 17 gm PO BEDTIME Polyethylene Glycol 3350 [MiraLAX] Med 03/12/17 21:00 Active 17 gm PO DAILY Pregabalin [Lyrica] Med 03/12/17 21:00 Active 150 mg PO TID Remove Patch Med 03/14/17 17:45 Active 1 ea TRDERM Q48H Simvastatin [Zocor] Med 03/13/17 09:00 Active 20 mg PO DAILY Zolpidem [Ambien] Med 03/12/17 21:00 Active 10 mg PO BEDTIME fentaNYL [Duragesic] Med 03/12/17 17:30 Active 50 mcg TOP Q48H Medication Orders Aspirin (Ecotrin) 325 mg PO BID [facility] Last Admin: 03/13/17 08:33 Dose: 325 mg Bisacodyl (Dulcolax) 5 mg PO DAILY PRN PRN Reason: Constipation Cholecalciferol (Vitamin D3) 5,000 units PO DAILY [facility] Last Admin: 03/13/17 08:33 Dose: 5,000 units Cyclobenzaprine HCl (Flexeril) 10 mg PO TID PRN PRN Reason: muscle spasms Last Admin: 03/13/17 12:27 Dose: 10 mg Duloxetine HCl (Cymbalta) 30 mg PO DAILY [facility] Last Admin: 03/13/17 08:34 Dose: 30 mg Famotidine (Pepcid) 20 mg PO Q12H [facility] Last Admin: 03/13/17 06:29 Dose: 20 mg Admin: 03/12/17 20:36 Dose: 20 mg Admin: 03/12/17 15:48 Dose: Fentanyl (Duragesic) 50 mcg TOP Q48H [facility] Last Admin: 03/12/17 20:36 Dose: 50 mcg Hydromorphone HCl (Dilaudid) 0.2 mg IVPUSH Q2H PRN PRN Reason: Breakthrough Pain Hydromorphone HCl (Dilaudid) 4 mg PO Q4H PRN PRN Reason: Pain Last Admin: 03/13/17 12:28 Dose: 4 mg Admin: 03/13/17 08:34 Dose: 4 mg Admin: 03/12/17 22:53 Dose: 4 mg Lisinopril (Prinivil) 10 mg PO DAILY [facility] Last Admin: 03/13/17 08:36 Dose: 10 mg Magnesium Hydroxide (Milk Of Magnesia) 30 ml PO BID PRN PRN Reason: Constipation Miscellaneous Information (Remove Patch) 1 ea TRDERM Q48H [facility] Naloxone HCl (Narcan) 0.1 mg IVPUSH Q5M PRN PRN Reason: Oversedation Ondansetron HCl (Zofran) 4 mg IVPUSH Q6H PRN PRN Reason: Nausea/Vomiting Polyethylene Glycol (Miralax) 17 gm PO DAILY [facility] Last Admin: 03/13/17 08:37 Dose: 17 gm Admin: 03/12/17 19:59 Dose: Not Given Polyethylene Glycol (Miralax) 17 gm PO BEDTIME [facility] Last Admin: 03/12/17 20:37 Dose: 17 gm Pregabalin (Lyrica) 150 mg PO TID [facility] Last Admin: 03/13/17 08:34 Dose: 150 mg Admin: 03/12/17 20:36 Dose: 150 mg Senna/Docusate Sodium (Senna Plus) 2 tab PO BEDTIME [facility] Last Admin: 03/12/17 20:33 Dose: Not Given Simvastatin (Zocor) 20 mg PO DAILY [facility] Last Admin: 03/13/17 09:00 Dose: 20 mg Sodium Chloride (Saline Flush) 10 ml FLUSH ASDIRECTED PRN PRN Reason: Keep Vein Open Tapentadol (Nucynta) 50 - 100 mg PO Q4H PRN PRN Reason: Pain Last Admin: 03/13/17 10:59 Dose: 50 mg Admin: 03/13/17 09:52 Dose: 50 mg Admin: 03/13/17 02:32 Dose: 50 mg Admin: 03/12/17 21:44 Dose: 50 mg Admin: 03/12/17 16:16 Dose: 50 mg Zolpidem Tartrate (Ambien) 10 mg PO BEDTIME [facility] Last Admin: 03/12/17 20:36 Dose: 10 mg - Assessment Assessment (Free Text/Narrative):: POD#1 - left TKA - Plan Plan (Free Text/Narrative):: 1. Nucynta added to medication regimen. 2. Discharge to home today if therapy goals met. 3. Pt to f/u with Dr. Vik almazan: chronic pain management. 4. Hgb 11.9 today. The pt's case was discussed with Dr. De Anda today.
[2017-03-14] MEDS ORDERED: REMOVE FENTANYL TRDERM SCH (17:45)
--- NOTE | 2017-03-15 08:53 | PCM.DCSUM1 ---
Discharge Summary - Hospital Course Brief History: Arsalan is a 71 yo male who underwent left TKA with Dr. De Anda on . The procedure was completed under general anesthesia. A femoral block was completed post-operatively. The pt was admitted to the Medical- Surgical Unit post-operatively. The pt received Ancef adam-operatively. He participated in P.T. and O.T. and met inpatient therapy goals. He was allowed to WBAT and used a FWW for mobility. The pt's surgical wound was dressed with a Mepilex dressing and remained clean and dry. On POD#1, the pt was started on 325mg aspirin twice daily for VTE prophylaxis. The pt used TEDs and SCDs also. On POD#1, the pt's hemoglobin was 11.9. Medial management was provided by the Hospitalist service and the pt's hospital course was uneventful. On POD#2, the pt was deemed appropriate for discharge to home with his . - Discharge Data Discharge Date: 03/13/17 Discharge Disposition: Home, Self-Care 01 Condition: Good - Patient Summary/Data Consults: Consultations 03/12/17 06:30 Consult to Case Management [CONS] Routine Consult to Physician [CONS] Routine OT Evaluation and Treatment [CONS] Routine 03/12/17 06:34 PT Evaluation and Treatment [CONS] Routine - Patient Instructions Diet: Usual Diet as Tolerated Activity: Apply Ice, As Tolerated, Elevate Extremity, Full Weight Bearing Driving: Do Not Drive Showering/Bathing: May Shower Wound/Incision Care: Keep Operative Site/Wound Site Clean and Dry, Do NOT Change Dressing Notify Provider of: Fever, Increased Pain, Swelling and Redness, Drainage, Nausea and/or Vomiting Other/Special Instructions: Please get up and moving around every hour while awake. This helps to prevent blood clots. Please take 325mg aspirin twice daily - this also helps to prevent blood clots. The medication is being used for blood clot prevention and not for pain control, so please use the medication twice daily as directed. Please wear the MARELY hose during the day and remove them at night. Please schedule for P.T. Complete the P.T. exercises and stretches that were instructed in the Hospital. Please use the pain medication as needed. The medication may cause drowsiness and/or constipation. You could use a stool softener like docusate sodium or Colace 100mg twice daily and/or a laxative like polyethylene glycol or Miralax daily for constipation. Dr. Ceja has also recommended you use 2 tablets of Sennokot every night. Contact your primary care provider for further instructions if you are constipated. Please schedule an appointment with your primary care provider for 'routine post-op care'. Use the incentive spirometer often. Please place ice to the knee often. Please elevate the limb to decrease swelling. Keep the Mepilex dressing in place until follow-up. Please call [phone] with questions or concerns. - Discharge Plan Prescriptions/Med Rec: Aspirin [Ecotrin] 325 mg PO BID #70 tab.ec Cyclobenzaprine [Flexeril] 10 mg PO TID PRN #40 tablet PRN Reason: muscle spasms Docusate Sodium/Sennosides [Senna Plus] 2 tab PO BEDTIME #60 tablet Famotidine [Pepcid] 20 mg PO Q12H #60 tablet Tapentadol HCl [Nucynta] 50 mg PO Q4H #60 tablet Home Medications: Home Meds Cholecalciferol (Vitamin D3) [Vitamin D3] 5,000 unit PO DAILY 03/09/17 [History] DULoxetine [Cymbalta] 30 mg PO DAILY 03/09/17 [History] HYDROmorphone [Dilaudid] 4 mg PO Q4H PRN 03/09/17 [History] Lisinopril 10 mg PO DAILY 03/09/17 [History] Polyethylene Glycol 3350 [MiraLAX] 1 dose PO BEDTIME 03/09/17 [History] Pregabalin [Lyrica] 150 mg PO TID 03/09/17 [History] atorvaSTATin [Lipitor] 20 mg PO DAILY 03/09/17 [History] fentaNYL [Fentanyl] 50 mcg TOP Q48H 03/09/17 [History] Aspirin [Ecotrin] 325 mg PO BID #70 tab.ec 03/13/17 [Rx] Cyclobenzaprine [Flexeril] 10 mg PO TID PRN #40 tablet 03/13/17 [Rx] Docusate Sodium/Sennosides [Senna Plus] 2 tab PO BEDTIME #60 tablet 03/13/17 [Rx ] Famotidine [Pepcid] 20 mg PO Q12H #60 tablet 03/13/17 [Rx] Tapentadol HCl [Nucynta] 50 mg PO Q4H #60 tablet 03/13/17 [Rx] Patient Handouts: Total Knee Replacement, Care After, [id number], Total Knee Replacement, [id number] Referrals: Kayla Nixon DO [Primary Care Provider] - (Please schedule a post-op follow- up appointment with your primary care doctor, MD Nixon within 1 to 2 weeks. ) Deanna Benitez PA-C [Physician Oversize Load Pilot Escort] - 03/20/17 11:45 am (Please follow- up with Dr. Benitez at your previously scheduled appointment on March 20 at 1145am. The next scheduled appointment is on March 27 at 1100am. ) - Patient Data Vitals - Most Recent: Last Vital Signs Temp 98.2 F 03/13/17 15:51 Pulse 78 03/13/17 15:51 Resp 19 03/13/17 15:51 BP 96/64 03/13/17 15:51 Pulse Ox 92 L 03/13/17 15:51 Weight - Most Recent: 234 lb 1.6 oz Med Orders - Current: Current Medications Discontinued Medications Aspirin (Ecotrin) 325 mg PO BID [facility] Last Admin: 03/13/17 08:33 Dose: 325 mg Bisacodyl (Dulcolax) 5 mg PO DAILY PRN PRN Reason: Constipation Bupivacaine HCl (Marcaine 0.25%) Confirm Administered Dose 30 ml .ROUTE .STK- MED ONE Stop: 03/12/17 06:17 Last Admin: 03/12/17 08:52 Dose: 30 ml Cefazolin Sodium (Ancef) Confirm Administered Dose 2 gm .ROUTE .STK-MED ONE Stop: 03/12/17 06:17 Last Admin: 03/12/17 08:44 Dose: 2 gm Cefazolin Sodium (Ancef) Confirm Administered Dose 2 gm .ROUTE .STK-MED ONE Stop: 03/12/17 06:45 Cholecalciferol (Vitamin D3) 5,000 units PO DAILY [facility] Last Admin: 03/13/17 08:33 Dose: 5,000 units Morphine Sulfate 8 mg/Epinephrine HCl 0.3 mg/Cefuroxime Sodium 750 mg/Ketorolac Tromethamine 30 mg/Sodium Chloride 27.9 ml 0 mg .XX ONETIME ONE Stop: 03/12/17 07:31 Last Admin: 03/12/17 08:51 Dose: 788.3 mg Cyclobenzaprine HCl (Flexeril) 10 mg PO TID PRN PRN Reason: muscle spasms Last Admin: 03/13/17 12:27 Dose: 10 mg Diphtheria/Tetanus/Acell Pertussis (Adacel) 0.5 ml IM .ONCE ONE Stop: 03/13/17 10:01 Last Admin: 03/13/17 13:10 Dose: Not Given Docusate Sodium (Colace) 100 mg PO BID PRN PRN Reason: Constipation Duloxetine HCl (Cymbalta) 30 mg PO DAILY [facility] Last Admin: 03/13/17 08:34 Dose: 30 mg Ephedrine Sulfate (Ephedrine Sulfate) 5 mg IVPUSH ASDIRECTED PRN PRN Reason: Hypotension Stop: 03/12/17 10:00 Epinephrine HCl (Adrenalin 1:1000) Confirm Administered Dose 1 mg .ROUTE .STK- MED ONE Stop: 03/12/17 11:21 Famotidine (Pepcid) 20 mg PO Q12H [facility] Last Admin: 03/13/17 16:51 Dose: 20 mg Fentanyl (Sublimaze) Confirm Administered Dose 250 mcg .ROUTE .STK-MED ONE Stop: 03/12/17 06:46 Fentanyl (Sublimaze) 50 mcg IVPUSH Q5M PRN PRN Reason: Pain Stop: 03/12/17 10:00 Last Admin: 03/12/17 10:47 Dose: 50 mcg Fentanyl (Sublimaze) Confirm Administered Dose 250 mcg .ROUTE .STK-MED ONE Stop: 03/12/17 08:13 Fentanyl (Sublimaze) Confirm Administered Dose 100 mcg .ROUTE .STK-MED ONE Stop: 03/12/17 09:48 Last Admin: 03/12/17 13:25 Dose: Not Given Fentanyl (Sublimaze) Confirm Administered Dose 100 mcg .ROUTE .STK-MED ONE Stop: 03/12/17 10:16 Last Admin: 03/12/17 13:25 Dose: Not Given Fentanyl (Sublimaze) Confirm Administered Dose 100 mcg .ROUTE .STK-MED ONE Stop: 03/12/17 10:40 Last Admin: 03/12/17 13:25 Dose: Not Given Fentanyl (Sublimaze) Confirm Administered Dose 100 mcg .ROUTE .STK-MED ONE Stop: 03/12/17 11:33 Last Admin: 03/12/17 11:41 Dose: 50 mcg Fentanyl (Duragesic) 50 mcg TOP Q48H [facility] Last Admin: 03/12/17 20:36 Dose: 50 mcg Hydromorphone HCl (Dilaudid) Confirm Administered Dose 1 mg .ROUTE .STK-MED ONE Stop: 03/12/17 06:45 Hydromorphone HCl (Dilaudid) 0.2 mg IVPUSH Q2H PRN PRN Reason: Breakthrough Pain Hydromorphone HCl (Dilaudid) 0.2 mg IVPUSH Q2H PRN PRN Reason: Breakthrough Pain Hydromorphone HCl (Dilaudid) 0.5 mg IVPUSH Q15M PRN PRN Reason: severe pain Stop: 03/12/17 10:00 Last Admin: 03/12/17 10:08 Dose: 0.5 mg Hydromorphone HCl (Dilaudid) Confirm Administered Dose 0.5 mg .ROUTE .STK-MED ONE Stop: 03/12/17 09:49 Last Admin: 03/12/17 13:24 Dose: Not Given Hydromorphone HCl (Dilaudid) 4 mg PO Q4H PRN PRN Reason: Pain Last Admin: 03/13/17 12:28 Dose: 4 mg Lactated Ringer's (Ringers, Lactated) 1,000 mls @ 125 mls/hr IV ASDIRECTED [facility] Stop: 03/12/17 23:00 Last Admin: 03/12/17 11:32 Dose: 125 mls/hr Acetaminophen (Ofirmev) 100 mls @ 400 mls/hr IV NOW ONE Stop: 03/12/17 06:18 Last Admin: 03/12/17 07:01 Dose: 400 mls/hr Lidocaine HCl (Xylocaine-Mpf 1%) Confirm Administered Dose 4 mls @ as directed .ROUTE .STK-MED ONE Stop: 03/12/17 06:45 Lactated Ringer's (Ringers, Lactated) Confirm Administered Dose 1,000 mls @ as directed .ROUTE .STK-MED ONE Stop: 03/12/17 06:45 Phenylephrine HCl 1 mg/ Sodium (Chloride) 10.1 mls @ 1 mls/sec IV TITRATE [facility] PRN Reason: Protocol Stop: 03/12/17 10:00 Cefazolin Sodium/Dextrose 2 gm (/ Premix) 50 mls @ 100 mls/hr IV Q8H [facility] Stop: 03/13/17 07:29 Last Admin: 03/13/17 06:29 Dose: 100 mls/hr Influenza Virus Vaccine (Pharmacy To Dose - Influenza Vaccine) 1 each IM ONETIME ONE Stop: 03/12/17 14:33 Last Admin: 03/12/17 15:47 Dose: Not Given Influenza Virus Vaccine (Fluzone High-Dose ) 180 mcg IM .ONCE ONE Stop: 03/12/17 14:46 Last Admin: 03/13/17 17:17 Dose: 180 mcg Iodine (Iodine 2% Mild Tincture) Confirm Administered Dose 30 ml .ROUTE .STK- MED ONE Stop: 03/12/17 06:17 Last Admin: 03/12/17 08:40 Dose: 18 ml Ketorolac Tromethamine (Toradol) 15 mg IVPUSH ONETIME ONE Stop: 03/13/17 12:21 Last Admin: 03/13/17 12:29 Dose: 15 mg Labetalol HCl (Normodyne) Confirm Administered Dose 100 mg .ROUTE .STK-MED ONE Stop: 03/12/17 08:24 Lidocaine/Sodium Bicarbonate (Buffered Lidocaine 1% In Ns 8.4%) 0.25 ml .XX ONETIME PRN PRN Reason: Prior to IV Start Stop: 03/12/17 18:00 Last Admin: 03/12/17 06:29 Dose: 0.25 ml Lisinopril (Prinivil) 10 mg PO DAILY [facility] Last Admin: 03/13/17 08:36 Dose: 10 mg Magnesium Hydroxide (Milk Of Magnesia) 30 ml PO BID PRN PRN Reason: Constipation Midazolam HCl (Versed 1 Mg/Ml) Confirm Administered Dose 2 mg .ROUTE .STK-MED ONE Stop: 03/12/17 11:33 Last Admin: 03/12/17 11:39 Dose: 2 mg Miscellaneous Information (Remove Patch) 1 ea TRDERM Q48H [facility] Naloxone HCl (Narcan) 0.1 mg IVPUSH Q5M PRN PRN Reason: Oversedation Ondansetron HCl (Zofran) Confirm Administered Dose 4 mg .ROUTE .STK-MED ONE Stop: 03/12/17 06:45 Ondansetron HCl (Zofran) 4 mg IVPUSH Q6H PRN PRN Reason: Nausea/Vomiting Ondansetron HCl (Zofran) 4 mg IVPUSH ONETIME PRN PRN Reason: Nausea/Vomiting Stop: 03/12/17 10:00 Pneumococcal Polyvalent Vaccine (Pneumovax 23) 0.5 ml IM .ONCE ONE Stop: 03/13/17 10:01 Last Admin: 03/13/17 13:10 Dose: Not Given Polyethylene Glycol (Miralax) 17 gm PO DAILY [facility] Last Admin: 03/13/17 08:37 Dose: 17 gm Polyethylene Glycol (Miralax) 17 gm PO BEDTIME [facility] Last Admin: 03/12/17 20:37 Dose: 17 gm Pregabalin (Lyrica) 150 mg PO TID [facility] Last Admin: 03/13/17 16:52 Dose: 150 mg Propofol (Diprivan 20 Ml) Confirm Administered Dose 200 mg .ROUTE .STK-MED ONE Stop: 03/12/17 06:46 Rocuronium Selby (Zemuron) Confirm Administered Dose 50 mg .ROUTE .STK-MED ONE Stop: 03/12/17 06:45 Ropivacaine (Naropin 0.5%) Confirm Administered Dose 30 ml .ROUTE .STK-MED ONE Stop: 03/12/17 11:21 Senna (Senna) 8.6 mg PO BID PRN PRN Reason: Constipation Senna/Docusate Sodium (Senna Plus) 2 tab PO BEDTIME [facility] Last Admin: 03/12/17 20:33 Dose: Not Given Simvastatin (Zocor) 20 mg PO DAILY [facility] Last Admin: 03/13/17 09:00 Dose: 20 mg Sodium Chloride (Saline Flush) 10 ml FLUSH ASDIRECTED PRN PRN Reason: Keep Vein Open Tapentadol (Nucynta) 50 - 100 mg PO Q4H PRN PRN Reason: Pain Last Admin: 03/13/17 10:59 Dose: 50 mg Tranexamic Acid (Cyklokapron) Confirm Administered Dose 1,000 mg .ROUTE .STK- MED ONE Stop: 03/12/17 06:16 Last Admin: 03/12/17 09:00 Dose: 1,000 mg Vancomycin HCl (Vancomycin) Confirm Administered Dose 1 gm .ROUTE .STK-MED ONE Stop: 03/12/17 06:17 Last Admin: 03/12/17 08:51 Dose: 1 gm Zolpidem Tartrate (Ambien) 10 mg PO BEDTIME [facility] Last Admin: 03/12/17 20:36 Dose: 10 mg *Q Meaningful Use (DIS) - VTE *Q VTE Criteria *Q: - Stroke *Q Stroke Criteria *Q: - AMI *Q AMI Criteria *Q:
--- NOTE | 2017-03-20 07:06 | PCM.OPNOTE ---
- General Post-Op/Procedure Note Date of Surgery/Procedure: 03/12/17 Operative Procedure(s): left total knee arthroplasty Pre Op Diagnosis: left knee osteoarthrosis Post-Op Diagnosis: Same Anesthesia Technique: Local, MAC, Spinal Primary Surgeon: Ghulam De Anda Anesthesia Provider: Julienne Green Reel Operator: Deanna Benitez Reel Operator: Marisa iMshra EBL in mLs: 350 Complications: None Condition: Good
--- NOTE | 2017-03-20 07:51 | OR ---
DATE OF OPERATION: 03/12/2017 SURGEON: Ghulam De Anda MD OPERATION PERFORMED: Left total knee arthroplasty. PREOPERATIVE DIAGNOSIS: Left knee osteoarthrosis. POSTOPERATIVE DIAGNOSIS: Left knee osteoarthrosis. ANESTHESIA: Local MAC with spinal. ANESTHESIA PROVIDER: Julienne Green CRNA ASSISTANTS: 1. Deanna Benitez PA-C. 2. Marisa Mishra LPN. ESTIMATED BLOOD LOSS: 350 mL. COMPLICATIONS: None. CONDITION: Stable. IMPLANTS: 1. Marvin size 7 Press-Fit PS femur. 2. [place] size 7 Press-Fit size 7 tibia. 3. [place] size 9 mm PSX3 polyethylene. 4. [place] 35 x 10 mm asymmetric patella. DESCRIPTION OF PROCEDURE: The patient was identified in the preop holding area. Proper site was marked and identified by the surgeon. The patient was taken back to the operating theater. After adequate anesthesia, the patient's left lower extremity had a nonsterile tourniquet applied and it was then sterilely prepped and draped in the usual sterile fashion. OR timeout was performed. The patient received 2 grams IV Ancef. At this time, left lower extremity was exsanguinated. Tourniquet was insufflated to 300 mmHg. Standard medial parapatellar incision was made. Medial parapatellar arthrotomy was created. Deep fibers of the MCL were raised and anterior fat pad was resected. At this time, attention was turned to the patella. Patella measured 25, it was resected to a 15 patella. Drill holes were then drilled and found to be in adequate position. The drill was then drilled in the distal femur and the intramedullary distal femoral cutting guide was then placed. 8 mm was resected off the distal femur and was found to be an adequate resection. Sizing guide was placed. It was found to be a size 7 femur that was shown on the implant record at the beginning of this dictation. The drill holes were drilled for the epicondylar axis using Whitesides line and epicondyles as reference. At this time, the 4-in - 1 cutting block was placed. An anterior posterior and anterior and posterior chamfer cuts were then completed. The correct size box cut was then placed and the box cut was completed and found to be an adequate resection. Attention was turned to the tibia. The posterior medial lateral retractors were placed. The extramedullary tibial guide was placed. It was placed in the old footprint of the ACL. It was aligned with the center of the ankle and 0 degrees of slope, 9 mm was then resected off the unaffected lateral side. There was found to be an acceptable resection. At this time, posterior osteophytes were removed along with medial and lateral meniscus. A trial implant was placed with a correct sized tibia that was mentioned at the beginning of the dictation. A 9-mm trial spacer was placed. A 9 mm X3 polyethylene was then placed. The patient's knee was brought through range of motion. The patella was tracking centrally and was stable to varus and valgus stress. Alignment was found to be roughly at 0 degrees. At this time, implants were opened on the back table and assembled. The tibia was stamped and drilled in proper rotation. The universal tibial base plate was impacted in place. Next, the size 7 Press-Fit PS femur was impacted into place and the 9 mm X3 polyethylene was placed. The patient's knee was brought into full extension. The patella was then press fit in place at this time. Tourniquet was deflated. One liter dilute Betadine solution was irrigated through the knee along with 3 L of pulse lavage irrigation with Ancef. Periarticular injection was then completed. The patient's knee was brought through a range of motion. At this time, a #2 barbed suture was used for closure of the medial parapatellar arthrotomy. Topical tranexamic acid was placed. 2-0 Vicryl was used subcutaneously, a running 3-0 Monocryl was used subcuticularly. The patient tolerated the procedure well and was sent to the PACU in stable condition. MMODAL /[id number] NAZIA
== END 2017-03-13 17:10 | disposition home or self-care (01) | DRG 470 ==
LOC: JD.MS 05:59
PROVIDERS: ADMIT Orthopaedic Surgery; ATTEND Orthopaedic Surgery
PROC: 0SRD0J9 Replacement of Left Knee Joint with Synthetic Substitute, Cemented, Open Approach (ICD-10-PCS; principal; 2017-03-12)
DX: M17.0 Bilateral primary osteoarthritis of knee (principal); I10 Essential (primary) hypertension; M10.9 Gout, unspecified; E78.2 Mixed hyperlipidemia; F39 Unspecified mood [affective] disorder; F51.01 Primary insomnia; Z79.82 Long term (current) use of aspirin; Z79.899 Other long term (current) drug therapy; Z88.6 Allergy status to analgesic agent; Z87.891 Personal history of nicotine dependence; Z23 Encounter for immunization; G89.18 Other acute postprocedural pain
CPT/HCPCS: 01402; 36415; 64447; 73560-26-LT; 73560-LT; 80053; 85027; 90662; 94760; 97110-GP; 97116-GP; 97162-GP; 97165-GO; 97530-GO; 97530-GP; 97535-GO; A9270-GY; C1776; G0008; J0171; J0690; J0697; J1170; J1885; J2250; J2270; J2405; J2704; J2795; J3010; J3370; J3490; J7120

== ENCOUNTER 2017-06-11 07:10 | Day surgery (SDC) | payer OTHER, MEDICARE ==
[~2017-06-11 07:10] MED LIST changes: +Bisacodyl 5 MG Tab PO PRN; +HYDROmorphone 0.5 MG/0.5 ML Syringe IVPUSH PRN; +Iodine/Sodium Iodide 2% Tincture 30 ML Bottle ONE; +Lactated Ringers 1,000 ML IV SCH; +Lidocaine 1%/Sod Bicarbonate in NS 8.4% 1 ML Syringe IDERM PRN; -Lidocaine 1%/Sod Bicarbonate in NS 8.4% 1 ML Syringe PRN; +Magnesium Hydroxide 400 MG/5 ML Susp 30 ML Cup PO PRN; +Naloxone 0.4 MG/ML SDV IVPUSH PRN; +Ondansetron 4 MG/2 ML SDV IVPUSH PRN; +Sennosides 8.6 MG Tab PO PRN; +ceFAZolin 1 GM Vial ONE; +diphenhydrAMINE 50 MG/ML SDV IVPUSH PRN
[2017-06-11] MEDS ORDERED: ceFAZolin 1 GM Vial ONE (07:22)
[2017-06-11] MEDS ORDERED: Lactated Ringers 1,000 ML ONE (07:22)
[2017-06-11] MEDS ORDERED: Propofol 200 MG/20 ML SDV ONE (07:23)
[2017-06-11] MEDS ORDERED: fentaNYL 100 MCG/2 ML SDV ONE ×2 (07:23→09:28)
[2017-06-11] MEDS ORDERED: Lidocaine 1% 4 ML ONE (07:23)
[2017-06-11] MEDS ORDERED: Midazolam 1 MG/ML 2 ML SDV ONE (07:23)
--- NOTE | 2017-06-11 07:46 | PCM.PREANE ---
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) Other: Reports: None - Physical Assessment NPO Status Date: 06/10/16 NPO Status Time: 20:30 Pulse: 82 O2 Sat by Pulse Oximetry: 92 Respiratory Rate: 16 Blood Pressure: 127/81 Temperature: 36.3 C Weight: 99 kg ASA Class: 2 Mental Status: Alert & Oriented x3 Airway Class: Mallampati = 2 Dentition: Reports: Bridge, Missing Tooth/Teeth Thyro-Mental Finger Breadths: 3 Mouth Opening Finger Breadths: 3 ROM/Head Extension: Full Lungs: Clear to Auscultation, Normal Respiratory Effort Cardiovascular: Regular Rate, Regular Rhythm - Allergies Allergies/Adverse Reactions: Allergies Allergy/AdvReac Type Severity Reaction Status Date / Time morphine AdvReac Agitation Verified 06/08/17 12:44 - Acknowledgements Anesthesia Type Planned: General Anesthesia, Regional Block Pt an Appropriate Candidate for the Planned Anesthesia: Yes Alternatives and Risks of Anesthesia Discussed w Pt/Guardian: Yes Pt/Guardian Understands and Agrees with Anesthesia Plan: Yes PreAnesthesia Questionnaire HEENT History: Reports: Impaired Vision Other HEENT History: wears glasses, has hearing aid Cardiovascular History: Reports: High Cholesterol, Hypertension Respiratory History: Reports: None, SOB Gastrointestinal History: Reports: Chronic Constipation Genitourinary History: Reports: Other (See Below) Other Genitourinary History: neurogenic bladder with self cathing, hyperuricemia [employer] History: Reports: None Musculoskeletal History: Reports: Back Pain, Chronic, Gout, Osteoarthritis Neurological History: Reports: None Psychiatric History: Reports: Other (See Below) Other Psychiatric History: mood disorder, insomnia Endocrine/Metabolic History: Reports: None Hematologic History: Reports: None Immunologic History: Reports: None Oncologic (Cancer) History: Reports: None Dermatologic History: Reports: None, Other (See Below) - Past Surgical History Head Surgeries/Procedures: Reports: None Cardiovascular Surgical History: Reports: None Respiratory Surgical History: Reports: None GI Surgical History: Reports: Appendectomy, Colonoscopy Female Surgical History: Reports: None Male Surgical History: Reports: None Endocrine Surgical History: Reports: None Neurological Surgical History: Reports: Other (See Below) Other Neurological Surgeries/Procedures: back surgery x 5 Musculoskeletal Surgical History: Reports: Carpal Tunnel, Knee Replacement Oncologic Surgical History: Reports: None Dermatological Surgical History: Reports: None - SUBSTANCE USE Smoking Status *Q: Former Smoker Tobacco Use Within Last Twelve Months: No Second Hand Smoke Exposure: No Recreational Drug Use History: No - HOME MEDS Home Medications: Home Meds Cholecalciferol (Vitamin D3) [Vitamin D3] 1,000 unit PO DAILY 03/09/17 [History] DULoxetine [Cymbalta] 30 mg PO DAILY 03/09/17 [History] Lisinopril 10 mg PO DAILY 03/09/17 [History] Pregabalin [Lyrica] 300 mg PO BID 03/09/17 [History] fentaNYL [Fentanyl] 50 mcg TOP Q48H 03/09/17 [History] HYDROmorphone [Dilaudid 1 MG/ML Soln] 1 mg PO Q4H PRN 06/08/17 [History] Polyethylene Glycol 3350 [MiraLAX] 1 dose PO BEDTIME 06/08/17 [History] Zolpidem Tartrate [Ambien] 10 mg PO BEDTIME 06/08/17 [History] atorvaSTATin [Lipitor] 20 mg PO DAILY 06/08/17 [History] - CURRENT (IN HOUSE) MEDS Current Meds: Current Medications Aspirin (Ecotrin) 325 mg PO BID [facility] Bisacodyl (Dulcolax) 5 mg PO DAILY PRN PRN Reason: Constipation Morphine Sulfate 8 mg/Epinephrine HCl 0.3 mg/Cefuroxime Sodium 750 mg/Ketorolac Tromethamine 30 mg/Sodium Chloride 27.9 ml 0 mg .XX ONETIME ONE Stop: 06/11/17 08:46 Cyclobenzaprine HCl (Flexeril) 10 mg PO TID PRN PRN Reason: Spasms Diphenhydramine HCl (Benadryl) 25 mg IVPUSH Q4H PRN PRN Reason: Nausea Docusate Sodium (Colace) 100 mg PO BID [facility] Famotidine (Pepcid) 20 mg PO BID [facility] Hydromorphone HCl (Dilaudid) 0.2 mg IVPUSH Q2H PRN PRN Reason: Breakthrough Pain Lactated Ringer's (Ringers, Lactated) 1,000 mls @ 125 mls/hr IV ASDIRECTED [facility] Stop: 06/11/17 23:00 Cefazolin Sodium/Dextrose 2 gm (/ Premix) 50 mls @ 100 mls/hr IV Q8H [facility] Stop: 06/11/17 22:59 Acetaminophen (Ofirmev) 100 mls @ 400 mls/hr IV NOW ONE Stop: 06/11/17 07:46 Lidocaine/Sodium Bicarbonate (Buffered Lidocaine 1% In Ns 8.4%) 0.25 ml IDERM ONETIME PRN PRN Reason: Prior to IV Start Stop: 06/11/17 18:00 Magnesium Hydroxide (Milk Of Magnesia) 30 ml PO BID PRN PRN Reason: Constipation Naloxone HCl (Narcan) 0.1 mg IVPUSH Q5M PRN PRN Reason: Oversedation Ondansetron HCl (Zofran) 4 mg IVPUSH Q6H PRN PRN Reason: Nausea/Vomiting Senna (Senna) 8.6 mg PO BID PRN PRN Reason: Constipation Sodium Chloride (Saline Flush) 10 ml FLUSH ASDIRECTED PRN PRN Reason: Keep Vein Open Stop: 06/11/17 18:00 Tapentadol (Nucynta) 50 - 100 mg PO Q4H PRN PRN Reason: Pain Discontinued Medications Bupivacaine HCl (Marcaine 0.25%) Confirm Administered Dose 30 ml .ROUTE .STK- MED ONE Stop: 06/11/17 07:09 Cefazolin Sodium (Ancef) Confirm Administered Dose 2 gm .ROUTE .STK-MED ONE Stop: 06/11/17 07:23 Cefazolin Sodium (Ancef) Confirm Administered Dose 2 gm .ROUTE .STK-MED ONE Stop: 06/11/17 07:09 Fentanyl (Sublimaze) Confirm Administered Dose 100 mcg .ROUTE .STK-MED ONE Stop: 06/11/17 07:24 Lactated Ringer's (Ringers, Lactated) Confirm Administered Dose 1,000 mls @ as directed .ROUTE .STK-MED ONE Stop: 06/11/17 07:23 Lidocaine HCl (Xylocaine-Mpf 1%) Confirm Administered Dose 4 mls @ as directed .ROUTE .STK-MED ONE Stop: 06/11/17 07:24 Iodine (Iodine 2% Mild Tincture) Confirm Administered Dose 30 ml .ROUTE .STK- MED ONE Stop: 06/11/17 07:09 Midazolam HCl (Versed 1 Mg/Ml) Confirm Administered Dose 2 mg .ROUTE .STK-MED ONE Stop: 06/11/17 07:24 Propofol (Diprivan 20 Ml) Confirm Administered Dose 600 mg .ROUTE .STK-MED ONE Stop: 06/11/17 07:24 Tranexamic Acid (Cyklokapron) Confirm Administered Dose 1,000 mg .ROUTE .STK- MED ONE Stop: 06/11/17 07:09 Vancomycin HCl (Vancomycin) Confirm Administered Dose 1 gm .ROUTE .STK-MED ONE Stop: 06/11/17 07:09
[2017-06-11] MEDS ORDERED: EPINEPHrine 1 MG/ML SDV ONE (07:57)
[2017-06-11] MEDS ORDERED: Ropivacaine 0.5% 5 MG/ML 30 ML SDV ONE (07:57)
[2017-06-11] MEDS ORDERED: HYDROmorphone 1 MG/ML Syringe ONE ×3 (08:22→09:27)
[2017-06-11] MEDS ORDERED: Ketamine 500 mg/10 ML MDV ONE (08:23)
[2017-06-11] MEDS ORDERED: ePHEDrine/Normal Saline 25 MG/5 ML Syringe ONE (08:59)
[2017-06-11] MEDS ORDERED: Ondansetron 4 MG/2 ML SDV ONE (08:59)
[2017-06-11] MEDS ORDERED: Phenylephrine/Normal Saline 100 MCG/ML 10 ML Syringe ONE (08:59)
[2017-06-11] MEDS ORDERED: Dexamethasone 4 MG/ML 5 ML MDV ONE (08:59)
[2017-06-11] MEDS ORDERED: ePHEDrine 50 MG/ML SDV IVPUSH PRN (09:22)
[2017-06-11] MEDS ORDERED: Haloperidol Lactate 5 MG/ML SDV IVPUSH ONE (09:22)
[2017-06-11] MEDS ORDERED: HYDROmorphone 0.5 MG/0.5 ML Syringe IVPUSH PRN (09:22)
[2017-06-11] MEDS ORDERED: Midazolam 1 MG/ML 2 ML SDV IVPUSH PRN (09:22)
[2017-06-11] MEDS ORDERED: fentaNYL 100 MCG/2 ML SDV IVPUSH PRN (09:22)
[2017-06-11] MEDS ORDERED: Lidocaine 1% 2 ML ONE (09:35)
[2017-06-11] MEDS: Morphine 8 MG, EPINEPHrine 0.3 MG, Cefuroxime 750 MG, Ketorolac 30 MG, Sodium Chloride ... ONE ×15 (09:36→19:38)
[2017-06-11] MEDS: Bupivacaine 0.25% 30 ML SDV ONE ×2 (09:37→09:38)
[2017-06-11] MEDS: Vancomycin 1 GM SDV ONE ×2 (09:43→09:44)
[2017-06-11] MEDS ORDERED: Ketorolac 30 MG/ML SDV ONE (10:16)
--- NOTE | 2017-06-11 10:30 | PCM.POSTAN ---
POST ANESTHESIA ASSESSMENT - MENTAL STATUS Mental Status: Somnolent - VITAL SIGNS Pulse Rate: 82 SaO2: 96 Resp Rate: 8 Blood Pressure: 102/64 Temperature: 37.3 C - RESPIRATORY Respiratory Status: Respiratory Rate WNL, Airway Patent, O2 Saturation Stable, Supplemental Oxygen - CARDIOVASCULAR CV Status: Pulse Rate WNL, Blood Pressure Stable - GASTROINTESTINAL GI Status: No Symptoms - PAIN Pain Score: 0 - POST OP HYDRATION Hydration Status: Adequate & Stable
--- NOTE | 2017-06-11 11:22 | PCM.SN ---
- Free Text/Narrative Note: Left selective femoral nerve block at the adductor canal for post-procedure pain control Start: 1055 Time out: 1055 End: 1111 Chart reviewed. Consent signed. Questions answered. Appropriate monitors applied. Time out performed. Right mid-shaft femur evaluated with ultrasound. Scanning medially femur, I was able to identify the femoral artery in the adductor canal. The saphenous nerve was lateral to the artery. The skin was prepped lateral to the ultrasound probe with chlorahexadine. Skin localized with 3mL of 1% lidocaine. The 21ga 4 insulated block needle was inserted under direct ultrasound guidance into the adductor canal. 20mL of 0.5% ropivacaine with 1:200,000 epinephrine was injected cirmcumferentially about the nerve with intermittent negative aspiration. Patient tolerated the procedure well. See pictures on progress note and vital signs on nurses notes. Block completed post-operatively. Josh Malone CRNA
--- NOTE | 2017-06-11 11:47 | CR ---
Right knee: AP and lateral views of the right knee were obtained. Comparison: No prior right knee exam. Knee prosthesis is seen. Components are aligned. Underlying bony structures are intact. Soft tissue air is noted from the surgical procedure. Impression: 1. Satisfactory radiographic appearance of recently placed right knee prosthesis. Diagnostic code #2
--- NOTE | 2017-06-11 12:52 | PCM.CONS ---
H&P History of Present Illness - General Date of Service: 06/11/17 Admit Problem/Dx: Admission Diagnosis/Problem Admission Diagnosis/Problem Osteoarthritis of knee Source of Information: Patient, Family, Old Records, Provider, RN Notes Reviewed History Limitations: Reports: Physical Impairment - History of Present Illness Initial Comments - Free Text/Narative: This is a 71-year-old, white male, with past medical history of HTN, HLD, Hyperuricemia, Chronic Back Pain With Radiculopahty, Chronic Opioid Use, Neurogenic Bladder with Self Catherization, and Obesity who underwent revision of left total knee arthroplasty post operative day zero. Patient is doing relatively well. Currently, his pain is controlled. He denies any acute issues. Medicine was consulted for postoperative care. Right Knee Pain Score (Numeric/FACES): 0 - Related Data Allergies/Adverse Reactions: Allergies Allergy/AdvReac Type Severity Reaction Status Date / Time morphine AdvReac Agitation Verified 06/08/17 12:44 Home Medications: Home Meds Cholecalciferol (Vitamin D3) [Vitamin D3] 1,000 unit PO DAILY 03/09/17 [History] DULoxetine [Cymbalta] 30 mg PO DAILY 03/09/17 [History] Lisinopril 10 mg PO DAILY 03/09/17 [History] Pregabalin [Lyrica] 300 mg PO BID 03/09/17 [History] fentaNYL [Fentanyl] 50 mcg TOP Q48H 03/09/17 [History] HYDROmorphone [Dilaudid 1 MG/ML Soln] 1 mg PO Q4H PRN 06/08/17 [History] Polyethylene Glycol 3350 [MiraLAX] 1 dose PO BEDTIME 06/08/17 [History] Zolpidem Tartrate [Ambien] 10 mg PO BEDTIME 06/08/17 [History] atorvaSTATin [Lipitor] 20 mg PO DAILY 06/08/17 [History] Past Medical History HEENT History: Reports: Impaired Vision Other HEENT History: wears glasses, has hearing aid Cardiovascular History: Reports: High Cholesterol, Hypertension Respiratory History: Reports: None, SOB Gastrointestinal History: Reports: Chronic Constipation Genitourinary History: Reports: Other (See Below) Other Genitourinary History: neurogenic bladder with self cathing, hyperuricemia [employer] History: Reports: None Musculoskeletal History: Reports: Back Pain, Chronic, Gout, Osteoarthritis Neurological History: Reports: None Psychiatric History: Reports: Other (See Below) Other Psychiatric History: mood disorder, insomnia Endocrine/Metabolic History: Reports: None Hematologic History: Reports: None Immunologic History: Reports: None Oncologic (Cancer) History: Reports: None Dermatologic History: Reports: None, Other (See Below) - Past Surgical History Head Surgeries/Procedures: Reports: None Cardiovascular Surgical History: Reports: None Respiratory Surgical History: Reports: None GI Surgical History: Reports: Appendectomy, Colonoscopy Female Surgical History: Reports: None Male Surgical History: Reports: None Endocrine Surgical History: Reports: None Neurological Surgical History: Reports: Other (See Below) Other Neurological Surgeries/Procedures: back surgery x 5 Musculoskeletal Surgical History: Reports: Carpal Tunnel, Knee Replacement Oncologic Surgical History: Reports: None Dermatological Surgical History: Reports: None Social & Family History - Family History Cardiac: Reports: Hypertension Respiratory: Reports: None GI: Reports: None : Reports: None Musculoskeletal: Reports: None Endocrine/Metabolic: Reports: Diabetes, type II Hematologic: Reports: None Oncologic: Reports: Breast - Tobacco Use Smoking Status *Q: Former Smoker Years of Tobacco use: 35 Packs/Tins Daily: 1 Used Tobacco, but Quit: Yes Month Tobacco Last Used: 1999 Second Hand Smoke Exposure: No - Caffeine Use Caffeine Use: Reports: Coffee Caffeine Use Comment: 2 cups of coffee/day - Recreational Drug Use Recreational Drug Use: No H&P Review of Systems - Review of Systems: Review Of Systems: See Below General: Denies: Fever, Chills, Malaise, Weakness, Fatigue HEENT: Reports: No Symptoms Pulmonary: Denies: Shortness of Breath, Wheezing Cardiovascular: Denies: Chest Pain, Palpitations, Dyspnea on Exertion, Lightheadedness, Blood Pressure Problem Gastrointestinal: Denies: Abdominal Pain, Nausea, Vomiting Genitourinary: Reports: Retention Musculoskeletal: Reports: No Symptoms Skin: Denies: Cyanosis, Mottled, Pallor, Diaphoresis, Pruritis, Rash, Erythema Psychiatric: Denies: Depression, Anxiety, Hallucinations, Suicidal Ideation, Homicidal Ideation Neurological: Reports: Difficulty Walking, Gait Disturbance. Denies: Confusion , Weakness Hematologic/Lymphatic: Reports: No Symptoms Immunologic: Reports: No Symptoms Exam - Exam Exam: See Below - Vital Signs Vital Signs: Last Vital Signs Temp 37.1 C 06/11/17 11:34 Pulse 82 01/29/18 10:30 Resp 12 06/11/17 11:50 BP 98/72 06/11/17 11:50 Pulse Ox 92 L 06/11/17 11:50 Weight: 99.11 kg - Exam Quality Assessment: Supplemental Oxygen General: Alert, Oriented, Cooperative. No: Mild Distress HEENT: Conjunctiva Clear, EACs Clear, EOMI, Hearing Intact, Mucosa Moist & [place] , Nares Patent, Normal Nasal Septum, Posterior Pharynx Clear, Pupils Equal, Pupils Reactive Neck: Supple, Trachea Midline, +2 Carotid Pulse wo Bruit Lungs: Clear to Auscultation, Normal Respiratory Effort Cardiovascular: Regular Rate, Regular Rhythm GI/Abdominal Exam: Normal Bowel Sounds, Soft, Non-Tender, No Organomegaly, No Distention, No Abnormal Bruit, No Mass (Male) Exam: Other (Indwelling beaver catheter) Rectal (Males) Exam: Deferred Back Exam: Normal Inspection, Decreased Range of Motion Extremities: Normal Inspection, Normal Range of Motion, Non-Tender, No Pedal Edema, Normal Capillary Refill Peripheral Pulses: 3+: Posterior Tibial (L), Dorsalis Pedis (L) Skin: Warm, Dry, Intact Neuro Extensive - Mental Status: Oriented x3, Normal Cognition, Memory Intact Neuro Extensive - Motor, Sensory, Reflexes: CN II-XII Intact, Abnormal Gait Psychiatric: Alert, Normal Affect, Normal Mood Consult PN Assessment/Plan POD#: 0 Procedures: Procedures ASSAY OF CREATININE (08/03/16) COMPLETE CBC AUTOMATED (03/12/17) COMPREHEN METABOLIC PANEL (03/12/17) DXA BONE DENSITY AXIAL (03/06/17) GAIT TRAINING THERAPY (03/12/17) MANUAL THERAPY 1/> REGIONS (04/25/17) MEASURE BLOOD OXYGEN LEVEL (03/12/17) MR-STAPH DNA AMP PROBE (05/29/17) MRI BRAIN STEM W/O & W/DYE (08/03/16) OT EVAL LOW COMPLEX 30 MIN (03/12/17) PT EVAL MOD COMPLEX 30 MIN (04/11/17) ROUTINE VENIPUNCTURE (03/12/17) SELF CARE MNGMENT TRAINING (03/12/17) THERAPEUTIC ACTIVITIES (03/12/17) THERAPEUTIC EXERCISES (04/25/17) X-RAY EXAM OF KNEE 1 OR 2 (03/12/17) Problem List Initiated/Reviewed/Updated: Yes Plan: Assessment: Acute: Post-Operative Care State - Stable - Continue to monitor for hemodynamic instability S/p Right Total Knee Arthroplasty - Stable - DVT and Pain Management as per primary team Hx/o Chronic Pain S/p Right TKA - Pain Management as per primary team Chronic: HTN HLD Insomnia Back Pain With Radiculopathy Hyperuricemia Opioid Use/Dependence Neurogenic Bladder (Self Catheterization) Obese with BMI of 31.4 (Class I) Plan: He is clinically stable Routine AM labs Continue home meds PT/OT consult IS q2 awake Thank you for the opportunity to participate in the management of this patient Requesting Provider: Dr. De Anda Date Consult Requested: 06/11/17 Reason for Consult: Post-Operative Care Patient History Reviewed: Yes Admission H&P Reviewed: Yes Consult Result/Summary:: Medically Stable Notified Requestor: Yes Time Spent (in minutes): 45
[2017-06-11] MEDS ORDERED: Lactated Ringers 2,000 ML ONE (14:00)
[2017-06-11] MEDS: ceFAZolin 2 GM in Premix Bag 1 BAG IV SCH (14:56)
[2017-06-11] MEDS ORDERED: HYDROmorphone 2 MG Tab PO PRN (19:53)
[2017-06-11] MEDS: Famotidine 20 MG Tab PO SCH (20:27)
[2017-06-11] MEDS: Pregabalin 75 MG Cap PO SCH (20:28)
[2017-06-11] MEDS: Docusate Sodium 100 MG Cap PO SCH (20:28)
[2017-06-11] MEDS ORDERED: Polyethylene Glycol 3350 Powder 17 GM Packet PO SCH (21:00)
[2017-06-11] MEDS ORDERED: Zolpidem 10 MG Tab PO SCH (21:00)
[2017-06-12] MEDS: ceFAZolin 2 GM in Premix Bag 1 BAG IV SCH ×3 (00:53→06:31)
[2017-06-12] MEDS: Cyclobenzaprine 10 MG Tab PO PRN ×2 (05:50→13:54)
--- NOTE | 2017-06-12 07:59 | PCM48HPAN ---
Post Anesthesia Note - EVALUATION WITHIN 48HRS OF ANESTHETIC Vital Signs in Normal Range: Yes Patient Participated in Evaluation: Yes Respiratory Function Stable: Yes Airway Patent: Yes Cardiovascular Function Stable: Yes Hydration Status Stable: Yes Pain Control Satisfactory: Yes Nausea and Vomiting Control Satisfactory: Yes Mental Status Recovered: Yes - COMMENTS/OBSERVATIONS Free Text/Narrative:: Pt doing well resting in bed. Stated he has ambulated with no problems. Stated this surgery was 10x better than his last knee replacement (from a pain standpoint).
[2017-06-12] MEDS ORDERED: DULoxetine 30 MG Cap PO SCH (09:00)
[2017-06-12] MEDS ORDERED: Lisinopril 10 MG Tab PO SCH (09:00)
[2017-06-12] MEDS ORDERED: Cholecalciferol (Vitamin D3) 1,000 Unit Tab PO SCH (09:00)
[2017-06-12] MEDS ORDERED: Aspirin 325 MG Tab.EC PO SCH (09:00)
--- NOTE | 2017-06-12 10:01 | PCM.CONSN ---
- General Info Date of Service: 06/12/17 Admission Dx/Problem (Free Text): Admission Diagnosis/Problem Admission Diagnosis/Problem Osteoarthritis of knee POD #1, TKA with Dr. De Anda Doing well, pain controlled, no n/v. Voiding and ambulating. VSS on RA Plans DC home today. Functional Status: Reports: Pain Controlled, Tolerating Diet, Ambulating, Urinating, Incentive Spirometry - Review of Systems General: Reports: No Symptoms HEENT: Reports: No Symptoms Pulmonary: Reports: No Symptoms Cardiovascular: Reports: No Symptoms Gastrointestinal: Reports: No Symptoms Genitourinary: Reports: No Symptoms Musculoskeletal: Reports: Leg Pain Skin: Reports: No Symptoms Neurological: Reports: No Symptoms Psychiatric: Reports: No Symptoms - Patient Data Vitals - Most Recent: Last Vital Signs Temp 98.2 F 06/12/17 07:49 Pulse 70 06/12/17 07:49 Resp 20 06/12/17 07:49 BP 105/59 L 06/12/17 07:49 Pulse Ox 92 L 06/12/17 07:49 Weight - Most Recent: 218 lb 8 oz I&O - Last 24 Hours: Intake & Output 06/11/17 06/12/17 06/12/17 22:59 06:59 14:59 Intake Total 300 900 Output Total 200 Balance 300 700 Lab Results Last 24 Hours: Laboratory Results - last 24 hr 06/12/17 06/12/17 Range/Units 06:20 06:20 WBC 15.38 H (4.23-9.07) K/mm3 RBC 3.69 L (4.63-6.08) M/mm3 Hgb 11.0 L (13.7-17.5) gm/L Hct 33.8 L (40.1-51.0) % MCV 91.6 (79.0-92.2) fl MCH 29.8 (25.7-32.2) pg MCHC 32.5 (32.2-35.5) g/dl RDW Std Deviation 46.2 H (35.1-43.9) fL Plt Count 301 (163-337) K/mm3 MPV 9.4 (9.4-12.3) fl Sodium 137 (136-145) mEq/L Potassium 4.5 (3.5-5.1) mEq/L Chloride 103 (98-107) mEq/L Carbon Dioxide 25 (21-32) mEq/L Anion Gap 13.5 (5-15) BUN 27 H (7-18) mg/dL Creatinine 1.5 H (0.7-1.3) mg/dL Est Cr Clr Drug Dosing 47.31 mL/min Estimated GFR (MDRD) 46 (>60) mL/min BUN/Creatinine Ratio 18.0 (14-18) Glucose 153 H (80-115) mg/dL Calcium 8.3 L (8.5-10.1) mg/dL Total Bilirubin 0.5 (0.2-1.0) mg/dL AST 18 (15-37) U/L ALT 22 (16-63) U/L Alkaline Phosphatase 90 (46-116) U/L Total Protein 5.9 L (6.4-8.2) g/dl Albumin 2.7 L (3.4-5.0) g/dl Globulin 3.2 gm/dL Albumin/Globulin Ratio 0.8 L (1-2) Med Orders - Current: Current Medications Aspirin (Ecotrin) 325 mg PO BID [facility] Bisacodyl (Dulcolax) 5 mg PO DAILY PRN PRN Reason: Constipation Cholecalciferol (Vitamin D3) 1,000 units PO DAILY [facility] Cyclobenzaprine HCl (Flexeril) 10 mg PO TID PRN PRN Reason: Spasms Last Admin: 06/12/17 05:50 Dose: 10 mg Diphenhydramine HCl (Benadryl) 25 mg IVPUSH Q4H PRN PRN Reason: Nausea Docusate Sodium (Colace) 100 mg PO BID [facility] Last Admin: 06/11/17 20:28 Dose: 100 mg Duloxetine HCl (Cymbalta) 30 mg PO DAILY [facility] Famotidine (Pepcid) 20 mg PO BID [facility] Last Admin: 06/11/17 20:27 Dose: 20 mg Hydromorphone HCl (Dilaudid) 1 mg PO Q4H PRN PRN Reason: Pain Lisinopril (Prinivil) 10 mg PO DAILY [facility] Magnesium Hydroxide (Milk Of Magnesia) 30 ml PO BID PRN PRN Reason: Constipation Naloxone HCl (Narcan) 0.1 mg IVPUSH Q5M PRN PRN Reason: Oversedation Ondansetron HCl (Zofran) 4 mg IVPUSH Q6H PRN PRN Reason: Nausea/Vomiting Polyethylene Glycol (Miralax) 17 gm PO BEDTIME [facility] Last Admin: 06/11/17 20:27 Dose: 17 gm Pregabalin (Lyrica) 300 mg PO BID [facility] Last Admin: 06/11/17 20:28 Dose: 300 mg Senna (Senna) 8.6 mg PO BID PRN PRN Reason: Constipation Simvastatin (Zocor) 20 mg PO BEDTIME [facility] Tapentadol (Nucynta) 50 - 100 mg PO Q4H PRN PRN Reason: Pain Last Admin: 06/12/17 05:50 Dose: 100 mg Zolpidem Tartrate (Ambien) 10 mg PO BEDTIME [facility] Last Admin: 06/11/17 20:28 Dose: 10 mg Discontinued Medications Bupivacaine HCl (Marcaine 0.25%) Confirm Administered Dose 30 ml .ROUTE .STK- MED ONE Stop: 06/11/17 07:09 Last Admin: 06/11/17 09:37 Dose: 30 ml Cefazolin Sodium (Ancef) Confirm Administered Dose 2 gm .ROUTE .STK-MED ONE Stop: 06/11/17 07:23 Last Admin: 06/11/17 09:34 Dose: 2 gm Cefazolin Sodium (Ancef) Confirm Administered Dose 2 gm .ROUTE .STK-MED ONE Stop: 06/11/17 07:09 Morphine Sulfate 8 mg/Epinephrine HCl 0.3 mg/Cefuroxime Sodium 750 mg/Ketorolac Tromethamine 30 mg/Sodium Chloride 27.9 ml 0 mg .XX ONETIME ONE Stop: 06/11/17 08:46 Last Admin: 06/11/17 19:38 Dose: Not Given Dexamethasone (Dexamethasone) Confirm Administered Dose 20 mg .ROUTE .STK-MED ONE Stop: 06/11/17 09:00 Ephedrine Sulfate (Ephedrine In Ns) Confirm Administered Dose 25 mg .ROUTE .STK- MED ONE Stop: 06/11/17 09:00 Ephedrine Sulfate (Ephedrine Sulfate) 5 mg IVPUSH ASDIRECTED PRN PRN Reason: Hypotension Epinephrine HCl (Adrenalin) Confirm Administered Dose 1 mg .ROUTE .STK-MED ONE Stop: 06/11/17 07:58 Fentanyl (Sublimaze) Confirm Administered Dose 100 mcg .ROUTE .STK-MED ONE Stop: 06/11/17 07:24 Fentanyl (Sublimaze) Confirm Administered Dose 100 mcg .ROUTE .STK-MED ONE Stop: 06/11/17 09:29 Fentanyl (Sublimaze) 50 mcg IVPUSH Q5M PRN PRN Reason: Pain Last Admin: 06/11/17 11:36 Dose: 50 mcg Haloperidol Lactate (Haldol) 1 mg IVPUSH ONETIME ONE Stop: 06/11/17 09:23 Last Admin: 06/11/17 19:38 Dose: Not Given Hydromorphone HCl (Dilaudid) 0.2 mg IVPUSH Q2H PRN PRN Reason: Breakthrough Pain Hydromorphone HCl (Dilaudid) Confirm Administered Dose 1 mg .ROUTE .STK-MED ONE Stop: 06/11/17 08:23 Hydromorphone HCl (Dilaudid) Confirm Administered Dose 1 mg .ROUTE .STK-MED ONE Stop: 06/11/17 09:18 Hydromorphone HCl (Dilaudid) Confirm Administered Dose 1 mg .ROUTE .STK-MED ONE Stop: 06/11/17 09:28 Hydromorphone HCl (Dilaudid) 0.5 mg IVPUSH Q15M PRN PRN Reason: severe pain Lactated Ringer's (Ringers, Lactated) 1,000 mls @ 125 mls/hr IV ASDIRECTED [facility] Stop: 06/11/17 23:00 Last Admin: 06/11/17 07:40 Dose: 125 mls/hr Cefazolin Sodium/Dextrose 2 gm (/ Premix) 50 mls @ 100 mls/hr IV Q8H [facility] Stop: 06/12/17 07:59 Last Admin: 06/12/17 06:31 Dose: Not Given Lactated Ringer's (Ringers, Lactated) Confirm Administered Dose 1,000 mls @ as directed .ROUTE .STK-MED ONE Stop: 06/11/17 07:23 Lidocaine HCl (Xylocaine-Mpf 1%) Confirm Administered Dose 4 mls @ as directed .ROUTE .STK-MED ONE Stop: 06/11/17 07:24 Acetaminophen (Ofirmev) 100 mls @ 400 mls/hr IV NOW ONE Stop: 06/11/17 07:46 Last Admin: 06/11/17 08:20 Dose: 400 mls/hr Lidocaine HCl (Xylocaine-Mpf 1%) Confirm Administered Dose 2 mls @ as directed .ROUTE .ST-MED ONE Stop: 06/11/17 09:36 Lactated Ringer's (Ringers, Lactated) Confirm Administered Dose 2,000 mls @ as directed .ROUTE .STK-MED ONE Stop: 06/11/17 14:01 Iodine (Iodine 2% Mild Tincture) Confirm Administered Dose 30 ml .ROUTE .ST- MED ONE Stop: 06/11/17 07:09 Last Admin: 06/11/17 09:31 Dose: 18 ml Ketamine HCl (Ketalar) Confirm Administered Dose 500 mg .ROUTE .ST-MED ONE Stop: 06/11/17 08:24 Ketorolac Tromethamine (Toradol) Confirm Administered Dose 30 mg .ROUTE .ST- MED ONE Stop: 06/11/17 10:17 Lidocaine/Sodium Bicarbonate (Buffered Lidocaine 1% In Ns 8.4%) 0.25 ml IDERM ONETIME PRN PRN Reason: Prior to IV Start Stop: 06/11/17 18:00 Last Admin: 06/11/17 07:40 Dose: 0.25 ml Midazolam HCl (Versed 1 Mg/Ml) Confirm Administered Dose 2 mg .ROUTE .ST-MED ONE Stop: 06/11/17 07:24 Midazolam HCl (Versed 1 Mg/Ml) 2 mg IVPUSH ONETIME PRN PRN Reason: Sedation Ondansetron HCl (Zofran) Confirm Administered Dose 4 mg .ROUTE .ST-MED ONE Stop: 06/11/17 09:00 Phenylephrine HCl (Phenylephrine In Ns 100 Mcg/Ml) Confirm Administered Dose 1 mg .ROUTE .ST-MED ONE Stop: 06/11/17 09:00 Propofol (Diprivan 20 Ml) Confirm Administered Dose 600 mg .ROUTE .STK-MED ONE Stop: 06/11/17 07:24 Ropivacaine (Naropin 0.5%) Confirm Administered Dose 30 ml .ROUTE .STK-MED ONE Stop: 06/11/17 07:58 Sodium Chloride (Saline Flush) 10 ml FLUSH ASDIRECTED PRN PRN Reason: Keep Vein Open Stop: 06/11/17 18:00 Tranexamic Acid (Cyklokapron) Confirm Administered Dose 1,000 mg .ROUTE .STK- MED ONE Stop: 06/11/17 07:09 Last Admin: 06/11/17 09:41 Dose: 1,000 mg Vancomycin HCl (Vancomycin) Confirm Administered Dose 1 gm .ROUTE .STK-MED ONE Stop: 06/11/17 07:09 Last Admin: 06/11/17 09:44 Dose: 1 gm - Exam Quality Assessment: DVT Prophylaxis General: Alert, Oriented, Cooperative, No Acute Distress HEENT: Pupils Equal, EOMI, Mucous Membr. Moist/[place] Neck: Supple Lungs: Clear to Auscultation, Normal Respiratory Effort Cardiovascular: Regular Rate, Regular Rhythm GI/Abdominal Exam: Normal Bowel Sounds, Soft, Non-Tender (Male) Exam: Deferred Extremities: Normal Capillary Refill (TEDS, SCD's bilat, ice to knee) Peripheral Pulses: 2+: Dorsalis Pedis (L), Dorsalis Pedis (R) Neurological: No New Focal Deficit Psy/Mental Status: Alert, Normal Affect, Normal Mood Consult PN Assessment/Plan POD#: 1 Procedures: Procedures ASSAY OF CREATININE (08/03/16) COMPLETE CBC AUTOMATED (03/12/17) COMPREHEN METABOLIC PANEL (03/12/17) DXA BONE DENSITY AXIAL (03/06/17) GAIT TRAINING THERAPY (03/12/17) MANUAL THERAPY 1/> REGIONS (04/25/17) MEASURE BLOOD OXYGEN LEVEL (03/12/17) MR-STAPH DNA AMP PROBE (05/29/17) MRI BRAIN STEM W/O & W/DYE (08/03/16) OT EVAL LOW COMPLEX 30 MIN (03/12/17) PT EVAL MOD COMPLEX 30 MIN (04/11/17) ROUTINE VENIPUNCTURE (03/12/17) SELF CARE MNGMENT TRAINING (03/12/17) THERAPEUTIC ACTIVITIES (03/12/17) THERAPEUTIC EXERCISES (04/25/17) X-RAY EXAM OF KNEE 1 OR 2 (03/12/17) (1) S/P total knee arthroplasty SNOMED Code(s): 9917249860427, 4160473044048 Code(s): Z96.659 - PRESENCE OF UNSPECIFIED ARTIFICIAL KNEE JOINT Priority: High Current Visit: Yes Qualifiers: Laterality: left Qualified Code(s): Z96.652 - Presence of left artificial knee joint (2) Osteoarthritis SNOMED Code(s): 047870226 Code(s): M19.90 - UNSPECIFIED OSTEOARTHRITIS, UNSPECIFIED SITE Priority: High Current Visit: Yes Qualifiers: Osteoarthritis location: knee Osteoarthritis type: primary Laterality: left Qualified Code(s): M17.12 - Unilateral primary osteoarthritis, left knee Problem List Initiated/Reviewed/Updated: Yes Plan: I/P: S/P total knee arthroplasty, POD # 1, Dr. De Anda--doing well - Pain management and DVT prophylax - PT/OT - RT/IS - Hgb 11.0, creat 1.5 - VSS on RA Chronic conditions: HTN- stable Gout Chronic low back pain Neurogenic Bladder- patient reports straight cath's 2-3 times daily at home prior; has spontaneously voided this morning x 1 at time of my exam. Mood disorder- pleasant and talkative today Other: GI Prophylax CM/SW for DC planning-- OK from Hospitalist standpoint for DC home today; doing well; updated Ortho team with recommendations. Patient is Full Code status.
[2017-06-12] MEDS: Famotidine 20 MG Tab PO SCH (10:04)
[2017-06-12] MEDS: Docusate Sodium 100 MG Cap PO SCH (10:04)
[2017-06-12] MEDS: Pregabalin 75 MG Cap PO SCH (10:12)
--- NOTE | 2017-06-12 12:27 | PCM.SURGPN ---
- General Info Date of Service: 06/12/17 POD#: 1 Functional Status: Reports: Pain Controlled, Tolerating Diet, Ambulating, Urinating, Incentive Spirometry - Review of Systems Musculoskeletal: Reports: Other (The pt has met inpatient therapy goals.) - Patient Data Vitals - Most Recent: Last Vital Signs Temp 97.6 F 06/12/17 12:00 Pulse 70 06/12/17 07:49 Resp 20 06/12/17 12:00 BP 121/72 06/12/17 12:00 Pulse Ox 94 L 06/12/17 12:00 Weight - Most Recent: 218 lb 8 oz I&O - Last 24 Hours: Intake & Output 06/11/17 06/12/17 06/12/17 22:59 06:59 14:59 Intake Total 300 900 300 Output Total 200 Balance 300 700 300 Lab Results Last 24 Hrs: Laboratory Results - last 24 hr 06/12/17 06/12/17 Range/Units 06:20 06:20 WBC 15.38 H (4.23-9.07) K/mm3 RBC 3.69 L (4.63-6.08) M/mm3 Hgb 11.0 L (13.7-17.5) gm/L Hct 33.8 L (40.1-51.0) % MCV 91.6 (79.0-92.2) fl MCH 29.8 (25.7-32.2) pg MCHC 32.5 (32.2-35.5) g/dl RDW Std Deviation 46.2 H (35.1-43.9) fL Plt Count 301 (163-337) K/mm3 MPV 9.4 (9.4-12.3) fl Sodium 137 (136-145) mEq/L Potassium 4.5 (3.5-5.1) mEq/L Chloride 103 (98-107) mEq/L Carbon Dioxide 25 (21-32) mEq/L Anion Gap 13.5 (5-15) BUN 27 H (7-18) mg/dL Creatinine 1.5 H (0.7-1.3) mg/dL Est Cr Clr Drug Dosing 47.31 mL/min Estimated GFR (MDRD) 46 (>60) mL/min BUN/Creatinine Ratio 18.0 (14-18) Glucose 153 H (80-115) mg/dL Calcium 8.3 L (8.5-10.1) mg/dL Total Bilirubin 0.5 (0.2-1.0) mg/dL AST 18 (15-37) U/L ALT 22 (16-63) U/L Alkaline Phosphatase 90 (46-116) U/L Total Protein 5.9 L (6.4-8.2) g/dl Albumin 2.7 L (3.4-5.0) g/dl Globulin 3.2 gm/dL Albumin/Globulin Ratio 0.8 L (1-2) Med Orders - Current: Current Medications Aspirin (Ecotrin) 325 mg PO BID [facility] Last Admin: 06/12/17 10:04 Dose: 325 mg Bisacodyl (Dulcolax) 5 mg PO DAILY PRN PRN Reason: Constipation Cholecalciferol (Vitamin D3) 1,000 units PO DAILY [facility] Last Admin: 06/12/17 10:04 Dose: 1,000 units Cyclobenzaprine HCl (Flexeril) 10 mg PO TID PRN PRN Reason: Spasms Last Admin: 06/12/17 05:50 Dose: 10 mg Diphenhydramine HCl (Benadryl) 25 mg IVPUSH Q4H PRN PRN Reason: Nausea Docusate Sodium (Colace) 100 mg PO BID [facility] Last Admin: 06/12/17 10:04 Dose: 100 mg Duloxetine HCl (Cymbalta) 30 mg PO DAILY [facility] Last Admin: 06/12/17 10:12 Dose: 30 mg Famotidine (Pepcid) 20 mg PO BID [facility] Last Admin: 06/12/17 10:04 Dose: 20 mg Hydromorphone HCl (Dilaudid) 1 mg PO Q4H PRN PRN Reason: Pain Lisinopril (Prinivil) 10 mg PO DAILY [facility] Last Admin: 06/12/17 10:06 Dose: 10 mg Magnesium Hydroxide (Milk Of Magnesia) 30 ml PO BID PRN PRN Reason: Constipation Naloxone HCl (Narcan) 0.1 mg IVPUSH Q5M PRN PRN Reason: Oversedation Ondansetron HCl (Zofran) 4 mg IVPUSH Q6H PRN PRN Reason: Nausea/Vomiting Polyethylene Glycol (Miralax) 17 gm PO BEDTIME [facility] Last Admin: 01/29/18 20:27 Dose: 17 gm Pregabalin (Lyrica) 300 mg PO BID [facility] Last Admin: 06/12/17 10:12 Dose: 300 mg Senna (Senna) 8.6 mg PO BID PRN PRN Reason: Constipation Simvastatin (Zocor) 20 mg PO BEDTIME [facility] Tapentadol (Nucynta) 50 - 100 mg PO Q4H PRN PRN Reason: Pain Last Admin: 06/12/17 11:24 Dose: 100 mg Zolpidem Tartrate (Ambien) 10 mg PO BEDTIME [facility] Last Admin: 06/11/17 20:28 Dose: 10 mg Discontinued Medications Bupivacaine HCl (Marcaine 0.25%) Confirm Administered Dose 30 ml .ROUTE .STK- MED ONE Stop: 06/11/17 07:09 Last Admin: 06/11/17 09:37 Dose: 30 ml Cefazolin Sodium (Ancef) Confirm Administered Dose 2 gm .ROUTE .STK-MED ONE Stop: 06/11/17 07:23 Last Admin: 06/11/17 09:34 Dose: 2 gm Cefazolin Sodium (Ancef) Confirm Administered Dose 2 gm .ROUTE .STK-MED ONE Stop: 06/11/17 07:09 Morphine Sulfate 8 mg/Epinephrine HCl 0.3 mg/Cefuroxime Sodium 750 mg/Ketorolac Tromethamine 30 mg/Sodium Chloride 27.9 ml 0 mg .XX ONETIME ONE Stop: 06/11/17 08:46 Last Admin: 06/11/17 19:38 Dose: Not Given Dexamethasone (Dexamethasone) Confirm Administered Dose 20 mg .ROUTE .STK-MED ONE Stop: 06/11/17 09:00 Ephedrine Sulfate (Ephedrine In Ns) Confirm Administered Dose 25 mg .ROUTE .STK- MED ONE Stop: 06/11/17 09:00 Ephedrine Sulfate (Ephedrine Sulfate) 5 mg IVPUSH ASDIRECTED PRN PRN Reason: Hypotension Epinephrine HCl (Adrenalin) Confirm Administered Dose 1 mg .ROUTE .STK-MED ONE Stop: 06/11/17 07:58 Fentanyl (Sublimaze) Confirm Administered Dose 100 mcg .ROUTE .STK-MED ONE Stop: 06/11/17 07:24 Fentanyl (Sublimaze) Confirm Administered Dose 100 mcg .ROUTE .STK-MED ONE Stop: 06/11/17 09:29 Fentanyl (Sublimaze) 50 mcg IVPUSH Q5M PRN PRN Reason: Pain Last Admin: 06/11/17 11:36 Dose: 50 mcg Haloperidol Lactate (Haldol) 1 mg IVPUSH ONETIME ONE Stop: 06/11/17 09:23 Last Admin: 06/11/17 19:38 Dose: Not Given Hydromorphone HCl (Dilaudid) 0.2 mg IVPUSH Q2H PRN PRN Reason: Breakthrough Pain Hydromorphone HCl (Dilaudid) Confirm Administered Dose 1 mg .ROUTE .STK-MED ONE Stop: 06/11/17 08:23 Hydromorphone HCl (Dilaudid) Confirm Administered Dose 1 mg .ROUTE .STK-MED ONE Stop: 06/11/17 09:18 Hydromorphone HCl (Dilaudid) Confirm Administered Dose 1 mg .ROUTE .STK-MED ONE Stop: 06/11/17 09:28 Hydromorphone HCl (Dilaudid) 0.5 mg IVPUSH Q15M PRN PRN Reason: severe pain Lactated Ringer's (Ringers, Lactated) 1,000 mls @ 125 mls/hr IV ASDIRECTED [facility] Stop: 06/11/17 23:00 Last Admin: 06/11/17 07:40 Dose: 125 mls/hr Cefazolin Sodium/Dextrose 2 gm (/ Premix) 50 mls @ 100 mls/hr IV Q8H [facility] Stop: 06/12/17 07:59 Last Admin: 06/12/17 06:31 Dose: Not Given Lactated Ringer's (Ringers, Lactated) Confirm Administered Dose 1,000 mls @ as directed .ROUTE .STK-MED ONE Stop: 06/11/17 07:23 Lidocaine HCl (Xylocaine-Mpf 1%) Confirm Administered Dose 4 mls @ as directed .ROUTE .STK-MED ONE Stop: 06/11/17 07:24 Acetaminophen (Ofirmev) 100 mls @ 400 mls/hr IV NOW ONE Stop: 06/11/17 07:46 Last Admin: 06/11/17 08:20 Dose: 400 mls/hr Lidocaine HCl (Xylocaine-Mpf 1%) Confirm Administered Dose 2 mls @ as directed .ROUTE .STK-MED ONE Stop: 06/11/17 09:36 Lactated Ringer's (Ringers, Lactated) Confirm Administered Dose 2,000 mls @ as directed .ROUTE .ST-MED ONE Stop: 06/11/17 14:01 Iodine (Iodine 2% Mild Tincture) Confirm Administered Dose 30 ml .ROUTE .STK- MED ONE Stop: 06/11/17 07:09 Last Admin: 06/11/17 09:31 Dose: 18 ml Ketamine HCl (Ketalar) Confirm Administered Dose 500 mg .ROUTE .STK-MED ONE Stop: 06/11/17 08:24 Ketorolac Tromethamine (Toradol) Confirm Administered Dose 30 mg .ROUTE .STK- MED ONE Stop: 06/11/17 10:17 Lidocaine/Sodium Bicarbonate (Buffered Lidocaine 1% In Ns 8.4%) 0.25 ml IDERM ONETIME PRN PRN Reason: Prior to IV Start Stop: 06/11/17 18:00 Last Admin: 06/11/17 07:40 Dose: 0.25 ml Midazolam HCl (Versed 1 Mg/Ml) Confirm Administered Dose 2 mg .ROUTE .STK-MED ONE Stop: 06/11/17 07:24 Midazolam HCl (Versed 1 Mg/Ml) 2 mg IVPUSH ONETIME PRN PRN Reason: Sedation Ondansetron HCl (Zofran) Confirm Administered Dose 4 mg .ROUTE .STK-MED ONE Stop: 06/11/17 09:00 Phenylephrine HCl (Phenylephrine In Ns 100 Mcg/Ml) Confirm Administered Dose 1 mg .ROUTE .STK-MED ONE Stop: 06/11/17 09:00 Propofol (Diprivan 20 Ml) Confirm Administered Dose 600 mg .ROUTE .STK-MED ONE Stop: 06/11/17 07:24 Ropivacaine (Naropin 0.5%) Confirm Administered Dose 30 ml .ROUTE .STK-MED ONE Stop: 06/11/17 07:58 Sodium Chloride (Saline Flush) 10 ml FLUSH ASDIRECTED PRN PRN Reason: Keep Vein Open Stop: 06/11/17 18:00 Tranexamic Acid (Cyklokapron) Confirm Administered Dose 1,000 mg .ROUTE .STK- MED ONE Stop: 06/11/17 07:09 Last Admin: 06/11/17 09:41 Dose: 1,000 mg Vancomycin HCl (Vancomycin) Confirm Administered Dose 1 gm .ROUTE .STK-MED ONE Stop: 06/11/17 07:09 Last Admin: 06/11/17 09:44 Dose: 1 gm - Exam Wound/Incisions: Dressing Dry and Intact General: Alert, Cooperative, No Acute Distress Lungs: Normal Respiratory Effort Extremities: Other (Kris's negative for RLE. NVS intact for RLE.) - Problem List Review Problem List Initiated/Reviewed/Updated: Yes - My Orders Last 24 Hours: Active Orders 24 hr Category Date Time Status Patient Status [ADT] Routine ADT 06/11/17 12:20 Active Ready for Discharge [RC] PER UNIT ROUTINE Care 06/12/17 12:24 Active Aspirin [Ecotrin] Med 06/12/17 09:00 Active 325 mg PO BID Cholecalciferol (Vitamin D3) [Vitamin D3] Med 06/12/17 09:00 Active 1,000 units PO DAILY DULoxetine [Cymbalta] Med 06/12/17 09:00 Active 30 mg PO DAILY Docusate Sodium [Colace] Med 06/11/17 21:00 Active 100 mg PO BID Famotidine [Pepcid] Med 06/11/17 21:00 Active 20 mg PO BID HYDROmorphone [Dilaudid] Med 06/11/17 19:53 Active 1 mg PO Q4H PRN Lisinopril [Prinivil] Med 06/12/17 09:00 Active 10 mg PO DAILY Polyethylene Glycol 3350 [MiraLAX] Med 06/11/17 21:00 Active 17 gm PO BEDTIME Pregabalin [Lyrica] Med 06/11/17 21:00 Active 300 mg PO BID Simvastatin [Zocor] Med 06/12/17 21:00 Active 20 mg PO BEDTIME Zolpidem [Ambien] Med 06/11/17 21:00 Active 10 mg PO BEDTIME Medication Orders Aspirin (Ecotrin) 325 mg PO BID [facility] Last Admin: 06/12/17 10:04 Dose: 325 mg Bisacodyl (Dulcolax) 5 mg PO DAILY PRN PRN Reason: Constipation Cholecalciferol (Vitamin D3) 1,000 units PO DAILY [facility] Last Admin: 06/12/17 10:04 Dose: 1,000 units Cyclobenzaprine HCl (Flexeril) 10 mg PO TID PRN PRN Reason: Spasms Last Admin: 06/12/17 05:50 Dose: 10 mg Diphenhydramine HCl (Benadryl) 25 mg IVPUSH Q4H PRN PRN Reason: Nausea Docusate Sodium (Colace) 100 mg PO BID [facility] Last Admin: 06/12/17 10:04 Dose: 100 mg Admin: 06/11/17 20:28 Dose: 100 mg Duloxetine HCl (Cymbalta) 30 mg PO DAILY [facility] Last Admin: 06/12/17 10:12 Dose: 30 mg Famotidine (Pepcid) 20 mg PO BID [facility] Last Admin: 06/12/17 10:04 Dose: 20 mg Admin: 06/11/17 20:27 Dose: 20 mg Hydromorphone HCl (Dilaudid) 1 mg PO Q4H PRN PRN Reason: Pain Lisinopril (Prinivil) 10 mg PO DAILY [facility] Last Admin: 06/12/17 10:06 Dose: 10 mg Magnesium Hydroxide (Milk Of Magnesia) 30 ml PO BID PRN PRN Reason: Constipation Naloxone HCl (Narcan) 0.1 mg IVPUSH Q5M PRN PRN Reason: Oversedation Ondansetron HCl (Zofran) 4 mg IVPUSH Q6H PRN PRN Reason: Nausea/Vomiting Polyethylene Glycol (Miralax) 17 gm PO BEDTIME [facility] Last Admin: 06/11/17 20:27 Dose: 17 gm Pregabalin (Lyrica) 300 mg PO BID [facility] Last Admin: 06/12/17 10:12 Dose: 300 mg Admin: 06/11/17 20:28 Dose: 300 mg Senna (Senna) 8.6 mg PO BID PRN PRN Reason: Constipation Simvastatin (Zocor) 20 mg PO BEDTIME [facility] Tapentadol (Nucynta) 50 - 100 mg PO Q4H PRN PRN Reason: Pain Last Admin: 06/12/17 11:24 Dose: 100 mg Admin: 06/12/17 05:50 Dose: 100 mg Admin: 06/11/17 20:29 Dose: 100 mg Zolpidem Tartrate (Ambien) 10 mg PO BEDTIME [facility] Last Admin: 06/11/17 20:28 Dose: 10 mg - Assessment Assessment (Free Text/Narrative):: POD#1 - right TKA - Plan Plan (Free Text/Narrative):: 1. Hgb 11.0. 2. Nucynta for pain management. 3. 325mg ASA BID, frequent mobility, TEDs. 4. Outpatient P.T. The pt's case was discussed with Dr. De Anda.
[2017-06-12] MEDS ORDERED: Simvastatin 20 MG Tab PO SCH (21:00)
--- NOTE | 2017-06-13 13:31 | PCM.OPNOTE ---
- General Post-Op/Procedure Note Date of Surgery/Procedure: 06/11/17 Operative Procedure(s): right total knee arthroplasty Pre Op Diagnosis: right knee osteoarthrosis Post-Op Diagnosis: Same Anesthesia Technique: Local, MAC, Spinal Primary Surgeon: Ghulam De Anda Anesthesia Provider: Erika Garcia Credit Authorizer: Deanna Benitez Credit Authorizer: Marisa Mishra EBL in mLs: 600 Complications: None Condition: Good
--- NOTE | 2017-06-13 14:01 | OR ---
DATE OF OPERATION: 06/11/2017 SURGEON: Ghulam De Anda MD OPERATION PERFORMED: Right total knee arthroplasty. PREOPERATIVE DIAGNOSIS: Right knee osteoarthrosis. POSTOPERATIVE DIAGNOSIS: Right knee osteoarthrosis. ANESTHESIA: Local MAC with spinal. ANESTHESIA PROVIDER: Jenna Briscoe. CHEMIST INSTRUMENTATION: Deanna Benitez PA-C, and Marisa Mishra LPN. ESTIMATED BLOOD LOSS: 600 mL COMPLICATIONS: None. CONDITION: Stable. IMPLANTS: 1. Marvin size 7 press-fit PS femur. 2. [place] size 7 press-fit tibial base plate. 3. [place] size 7, 9 mm PS X3 polyethylene. 4. Marvin size 35 x 10 mm press-fit patella. DESCRIPTION OF PROCEDURE: The patient was identified in the preop holding area. Proper site was marked and identified by the surgeon. The patient was taken back to the operating theater. After adequate anesthesia, the patient's right lower extremity had a nonsterile tourniquet applied and it was then sterilely prepped and draped in the usual sterile fashion. OR timeout was performed. The patient received 2 g IV Ancef. At this time, right lower extremity was exsanguinated. Tourniquet was insufflated to 300 mmHg. Standard medial parapatellar incision was made. Medial parapatellar arthrotomy was created. Deep fibers of the MCL were raised and anterior fat pad was resected. At this time, attention was turned to the patella. Patella measured 24, it was resected to a 14 for a 35 x 10 mm patella. Drill holes were then drilled and found to be in adequate position. The drill was then drilled in the distal femur and the intramedullary distal femoral cutting guide was then placed. 10 mm was resected off the distal femur and was found to be an adequate resection. Sizing guide was placed. It was found to be a [place] size 7 press-fit PS femur that was shown on the implant record at the beginning of this dictation. The drill holes were drilled for the epicondylar axis using [place] line and epicondyles as reference. At this time, the 4-in - 1 cutting block was placed. An anterior posterior and anterior and posterior chamfer cuts were then completed. The correct size box cut was then placed and the box cut was completed and found to be an adequate resection. Attention was turned to the tibia. The posterior medial lateral retractors were placed. The extramedullary tibial guide was placed. It was placed in the old footprint of the ACL. It was aligned with the center of the ankle and 0 degrees of slope, 9 mm was then resected off the unaffected lateral side. There was found to be an acceptable reduction. At this time, posterior osteophytes were removed along with medial and lateral meniscus. A trial implant was placed with a correct sized tibia that was mentioned at the beginning of the dictation. A [place] size 7, 9 mm PS X3 polyethylene was then placed. The patient's knee was brought through range of motion. The patella was tracking centrally and was stable to varus and valgus stress. Alignment was found to be roughly at 0 degrees. At this time, cement was mixed on the back table. The tibia was stamped and drilled in proper rotation. The universal tibial base plate was impacted into place. Next, the [place] size 7 press-fit PS femur was impacted into place and the [place] size 7, 9 mm PS X3 polyethylene was placed. The patient's knee was brought into full extension. The patella was then press-fit in place at this time. Tourniquet was deflated. One liter dilute Betadine solution was irrigated through the knee along with 3 L of pulse lavage irrigation with Ancef. Periarticular injection was then completed. The patient's knee was brought through a range of motion. Knee was found to be stable to varus valgus stress, the patella was tracking centrally with full range of motion. At this time, a #2 barbed suture was used for closure of the medial parapatellar arthrotomy. Topical tranexamic acid was placed. 2-0 Vicryl was used subcutaneously, a running 3-0 Monocryl was used subcuticularly. The patient tolerated the procedure well and was sent to the PACU in stable condition. NAV /[id number]
== END 2017-06-12 14:15 | disposition home or self-care (01) ==
LOC: JD.MS 07:10 → JD.SDS 07:10
PROVIDERS: ATTEND Orthopaedic Surgery
DX: M17.11 Unilateral primary osteoarthritis, right knee (principal); E78.2 Mixed hyperlipidemia; I10 Essential (primary) hypertension; K59.09 Other constipation; G47.00 Insomnia, unspecified; M96.1 Postlaminectomy syndrome, not elsewhere classified; G89.29 Other chronic pain; M54.10 Radiculopathy, site unspecified; M10.9 Gout, unspecified; E66.9 Obesity, unspecified; Z68.31 Body mass index [BMI] 31.0-31.9, adult; Z79.82 Long term (current) use of aspirin; Z79.899 Other long term (current) drug therapy; Z88.5 Allergy status to narcotic agent; Z90.49 Acquired absence of other specified parts of digestive tract; Z98.890 Other specified postprocedural states; Z87.891 Personal history of nicotine dependence
CPT/HCPCS: 27447; 36415; 73560; 80053; 85027; 97110; 97116; 97161; 97166; 97530; 97535; A9270; J0171; J0690; J0697; J1100; J1170; J1885; J2250; J2270; J2405; J2795; J3010; J3370; J3490; J7050; J7120; 01402; 64450; C1776; J2001; J2704